=== PATIENT | female | born 1965 | race African-American/Black ===

== ENCOUNTER 2018-06-21 22:19 | Inpatient (IN) | payer MEDICARE, MEDICAID ==
[~2018-06-21] VITALS: Ht 170.2 cm; Wt 177.0 kg
[~2018-06-21 22:19] MED LIST: RIMRON; WELLBUTRIN; ZOLOFT
[2018-06-21] MEDS ORDERED: SODIUM CHLORIDE 0.9% 1,000 ML IV ONE (22:30)
[2018-06-21] MEDS ORDERED: ASPIRIN 81MG TABLET PO ONE (22:30)
[2018-06-21] MEDS: METOPROLOL TARTRATE 5MG/5ML VIAL IV SCH ×2 (22:40→22:53)
[2018-06-21 23:55] LABS: CHLORIDE 106 mEq/L (98-107)
[2018-06-21 23:57] LABS: INR 1.5; PARTIAL THROMBOPLASTIN TIME 25.2 sec (23.4-31.0); PROTHROMBIN TIME 14.8 sec (9.1-11.1)
[2018-06-22] VITALS (10 sets, daily range): BP systolic 106–138; BP diastolic 47–105
[2018-06-22] MEDS ORDERED: POTASSIUM CHLORIDE 20MEQ TABLET SR PO NR
[2018-06-22] MEDS ORDERED: METOPROLOL TARTRATE 25MG TABLET PO ONE
[2018-06-22 00:10] LABS: BASOPHILS % 0.5 % (0.0-2.0); EOSINOPHILS % 0.3 % (0.0-5.0); HEMOGLOBIN. 11.5 g/dL (12.0-16.0); LYMPHOCYTES % 18.1 % (20.0-50.0); MEAN CORPUSCULAR HEMOGLOBIN 26.4 pg (28.0-32.0); MEAN CORPUSCULAR VOLUME 84.7 fL (81.0-99.0); MEAN PLATELET VOLUME 10.9 fl (7.4-10.4); MONOCYTES % 10.5 % (2.0-8.0); NEUTROPHILS % 70.6 % (40.0-76.0); PLATELET 231 x1000/uL (130-400); RED BLOOD CELL COUNT 4.37 mill/uL (4.2-5.4); RED CELL DISTRIBUTION WIDTH 19.7 % (11.6-14.6)
[2018-06-22] MEDS ORDERED: SODIUM CHLORIDE 0.9% 1,000 ML IV ONE (00:30)
[2018-06-22] MEDS ORDERED: ONDANSETRON HCL 4MG/2ML INJ IV ONE (01:45)
[2018-06-22] MEDS: SODIUM CHLORIDE 0.9% 1,000 ML IV SCH ×2 (06:00→18:39)
[2018-06-22 06:58] LABS: BASOPHILS % 0.4 % (0.0-2.0); HEMATOCRIT. 33.9 % (36.0-48.0); HEMOGLOBIN. 10.8 g/dL (12.0-16.0); LYMPHOCYTES % 8.4 % (20.0-50.0); MEAN CORPUSCULAR HEMOGLOBIN 26.2 pg (28.0-32.0); MEAN CORPUSCULAR VOLUME 82.3 fL (81.0-99.0); MEAN PLATELET VOLUME 10.5 fl (7.4-10.4); MONOCYTES % 8.7 % (2.0-8.0); NEUTROPHILS % 82.5 % (40.0-76.0); PLATELET 211 x1000/uL (130-400); RED BLOOD CELL COUNT 4.11 mill/uL (4.2-5.4); RED CELL DISTRIBUTION WIDTH 19.4 % (11.6-14.6)
[2018-06-22 07:11] LABS: CHLORIDE 106 mEq/L (98-107)
[2018-06-22 07:16] LABS: LDL CHOLESTEROL 92 mg/dL (5-100)
[2018-06-22 07:17] LABS: HDL CHOLESTEROL 15 mg/dL (40-59)
[2018-06-22 07:18] LABS: CREATINE KINASE 162 IU/L (26-192)
[2018-06-22 07:20] LABS: CREATINE KINASE MB FRACTION 5.9 ng/mL (0.5-3.6)
[2018-06-22 07:46] LABS: HEPATITIS B SURFACE ANTIGEN NEGATIVE
[2018-06-22 08:15] LABS: HEPATITIS A AB IGM NEGATIVE (NEGATIVE)
[2018-06-22] MEDS ORDERED: ONDANSETRON HCL 4MG/2ML INJ IV PRN (10:15)
[2018-06-22] MEDS ORDERED: HYDROCODONE/ACETAMINOPHEN 5/325MG TABLET PO PRN (10:15)
[2018-06-22] MEDS ORDERED: ACETAMINOPHEN 325MG TABLET PO PRN (10:15)
[2018-06-22] MEDS ORDERED: CLONIDINE 0.1MG TABLET PO PRN (10:15)
[2018-06-22] MEDS: PANTOPRAZOLE SODIUM 40 MG/VIAL IV SCH (11:05)
[2018-06-22] MEDS: DILTIAZEM HCL 5MG/ML 5ML VIAL IV PRN ×5 (11:07→21:28)
[2018-06-22] MEDS ORDERED: LEVOFLOXACIN 750MG PREMIX 150 ML IV SCH (12:00)
[2018-06-22] MEDS: FUROSEMIDE 40MG/4ML VIAL IVP SCH ×2 (13:35→17:46)
[2018-06-22] MEDS: POTASSIUM CHLORIDE 20MEQ TABLET SR PO SCH (13:35)
[2018-06-22] MEDS: DILTIAZEM HCL 30MG TABLET PO SCH ×2 (14:42→21:37)
[2018-06-22] MEDS ORDERED: DEXTROSE 50% WATER 50ML SYRINGE IV PRN (15:45)
[2018-06-22] MEDS: BLOOD SUGAR DIAGNOSTIC STRIP TEST SCH ×2 (17:18→21:25)
[2018-06-22] MEDS: INSULIN LISPRO 100 UNITS/ML SUBCUT SCH ×2 (17:20→21:00)
[2018-06-22] MEDS ORDERED: WARFARIN SODIUM 5MG TABLET PO NR (18:00)
[2018-06-22 18:51] LABS: T4 FREE 1.8 ng/dL (0.76-1.46)
[2018-06-22 19:03] LABS: FOLIC ACID (FOLATE) SERUM 8.5 ng/mL (>5.38)
[2018-06-22] MEDS: AMIODARONE HCL 200 MG TABLET PO SCH (21:24)
[2018-06-22] MEDS: CARVEDILOL 6.25 MG TABLET PO SCH (21:25)
[2018-06-23] VITALS (12 sets, daily range): BP systolic 96–130; BP diastolic 36–98
[2018-06-23] MEDS: IPRATROPIUM BROMIDE (0.02%) 0.5MG/2.5ML NEB HHN SCH ×4 (02:18→20:26)
[2018-06-23] MEDS: SODIUM CHLORIDE 0.9% 1,000 ML IV SCH (05:45)
[2018-06-23] MEDS: DILTIAZEM HCL 30MG TABLET PO SCH ×3 (05:51→21:30)
[2018-06-23] MEDS: BLOOD SUGAR DIAGNOSTIC STRIP TEST SCH ×4 (06:09→21:06)
[2018-06-23] MEDS: INSULIN LISPRO 100 UNITS/ML SUBCUT SCH ×4 (06:09→21:00)
[2018-06-23 07:28] LABS: BASOPHILS % 0.4 % (0.0-2.0); EOSINOPHILS % 0.2 % (0.0-5.0); HEMATOCRIT. 31.5 % (36.0-48.0); HEMOGLOBIN. 10.2 g/dL (12.0-16.0); LYMPHOCYTES % 11.9 % (20.0-50.0); MEAN CORPUSCULAR HEMOGLOBIN 26.6 pg (28.0-32.0); MEAN CORPUSCULAR VOLUME 82.2 fL (81.0-99.0); MEAN PLATELET VOLUME 10.8 fl (7.4-10.4); MONOCYTES % 10.7 % (2.0-8.0); NEUTROPHILS % 76.8 % (40.0-76.0); PLATELET 162 x1000/uL (130-400); RED BLOOD CELL COUNT 3.83 mill/uL (4.2-5.4); RED CELL DISTRIBUTION WIDTH 19.5 % (11.6-14.6)
[2018-06-23 07:31] LABS: INR 1.4; PROTHROMBIN TIME 14.3 sec (9.1-11.1)
[2018-06-23 07:42] LABS: CHLORIDE 105 mEq/L (98-107)
[2018-06-23] MEDS: BUDESONIDE 0.5MG/2ML NEB HHN SCH ×2 (08:18→20:26)
[2018-06-23] MEDS: PANTOPRAZOLE SODIUM 40 MG/VIAL IV SCH (08:25)
[2018-06-23] MEDS: POTASSIUM CHLORIDE 20MEQ TABLET SR PO SCH (08:26)
[2018-06-23] MEDS: AMIODARONE HCL 200 MG TABLET PO SCH ×2 (08:26→20:55)
[2018-06-23] MEDS: FUROSEMIDE 40MG/4ML VIAL IVP SCH ×2 (08:26→17:00)
[2018-06-23] MEDS: CARVEDILOL 6.25 MG TABLET PO SCH ×2 (08:27→20:56)
[2018-06-23] MEDS ORDERED: ALPRAZOLAM 0.25 MG TABLET PO SCH (12:15)
[2018-06-23] MEDS ORDERED: VANCOMYCIN 2,000 MG in DEXT 5% WATER 500 ML IV SCH (12:30)
[2018-06-23] MEDS ORDERED: WARFARIN SODIUM 5MG TABLET PO SCH (18:00)
[2018-06-23] MEDS: VANCOMYCIN 1,750 MG in DEXT 5% WATER 500 ML IV SCH (20:55)
[2018-06-24] VITALS (11 sets, daily range): BP systolic 100–135; BP diastolic 56–98
[2018-06-24] MEDS: IPRATROPIUM BROMIDE (0.02%) 0.5MG/2.5ML NEB HHN SCH ×4 (00:29→20:42)
[2018-06-24] MEDS: DILTIAZEM HCL 30MG TABLET PO SCH ×2 (06:00→14:00)
[2018-06-24] MEDS: INSULIN LISPRO 100 UNITS/ML SUBCUT SCH (06:22)
[2018-06-24] MEDS: BLOOD SUGAR DIAGNOSTIC STRIP TEST SCH ×2 (06:22→11:03)
[2018-06-24 07:04] LABS: INR 1.5; PROTHROMBIN TIME 14.6 sec (9.1-11.1)
[2018-06-24 07:11] LABS: BASOPHILS % 0.5 % (0.0-2.0); EOSINOPHILS % 0.3 % (0.0-5.0); HEMOGLOBIN. 10.7 g/dL (12.0-16.0); LYMPHOCYTES % 11.8 % (20.0-50.0); MEAN CORPUSCULAR HEMOGLOBIN 26.1 pg (28.0-32.0); MEAN CORPUSCULAR VOLUME 82.7 fL (81.0-99.0); MEAN PLATELET VOLUME 10.7 fl (7.4-10.4); MONOCYTES % 12.2 % (2.0-8.0); NEUTROPHILS % 75.2 % (40.0-76.0); PLATELET 160 x1000/uL (130-400); RED BLOOD CELL COUNT 4.11 mill/uL (4.2-5.4); RED CELL DISTRIBUTION WIDTH 19.5 % (11.6-14.6)
[2018-06-24 07:13] LABS: CHLORIDE 104 mEq/L (98-107)
[2018-06-24] MEDS: PANTOPRAZOLE SODIUM 40 MG/VIAL IV SCH (08:16)
[2018-06-24] MEDS: POTASSIUM CHLORIDE 20MEQ TABLET SR PO SCH (08:17)
[2018-06-24] MEDS: CARVEDILOL 6.25 MG TABLET PO SCH ×2 (08:17→20:51)
[2018-06-24] MEDS: AMIODARONE HCL 200 MG TABLET PO SCH (08:18)
[2018-06-24] MEDS: FUROSEMIDE 40MG/4ML VIAL IVP SCH ×2 (08:23→17:56)
[2018-06-24] MEDS: VANCOMYCIN 1,750 MG in DEXT 5% WATER 500 ML IV SCH ×2 (08:23→20:52)
[2018-06-24] MEDS: BUDESONIDE 0.5MG/2ML NEB HHN SCH ×2 (12:08→20:43)
[2018-06-24] MEDS ORDERED: WARFARIN SODIUM 7.5MG TABLET PO SCH (18:00)
[2018-06-24] MEDS: DILTIAZEM HCL 120MG CAPSULE CD 24HR PO SCH (20:51)
[2018-06-24 21:44] LABS: CLARITY URINE CLEAR (CLEAR); COLOR URINE YELLOW (YELLOW); KETONES URINE NEGATIVE (NEGATIVE); LEUKOCYTE ESTERASE URINE 1+ (NEGATIVE); NITRITE URINE NEGATIVE (NEGATIVE); OCCULT BLOOD URINE 2+ (NEGATIVE); PROTEIN URINE NEGATIVE (NEGATIVE); SPECIFIC GRAVITY URINE 1.007 (1.005-1.030)
[2018-06-24 21:58] LABS: *AMPHETAMINES SCREEN URINE NEGATIVE (NEGATIVE); *BARBITURATES SCREEN URINE NEGATIVE (NEGATIVE); *BENZODIAZEPINES SCREEN URINE NEGATIVE (NEGATIVE); *COCAINE SCREEN URINE NEGATIVE (NEGATIVE); METHADONE URINE SCREEN NEGATIVE (NEGATIVE); OPIATES URINE SCREEN PRESUMTIVE POSITIVE (NEGATIVE); PHENCYCLIDINE URINE SCREEN NEGATIVE (NEGATIVE)
[2018-06-24 21:59] LABS: CANNABINOID URINE SCREEN NEGATIVE (NEGATIVE)
[2018-06-25] VITALS (13 sets, daily range): BP systolic 97–135; BP diastolic 53–81
[2018-06-25] MEDS: IPRATROPIUM BROMIDE (0.02%) 0.5MG/2.5ML NEB HHN SCH ×4 (02:00→20:50)
[2018-06-25 05:45] LABS: HEMATOCRIT. 31.2 % (36.0-48.0); HEMOGLOBIN. 10.2 g/dL (12.0-16.0); MEAN CORPUSCULAR HEMOGLOBIN 26.7 pg (28.0-32.0); MEAN CORPUSCULAR VOLUME 81.6 fL (81.0-99.0); MEAN PLATELET VOLUME 10.1 fl (7.4-10.4); PLATELET 157 x1000/uL (130-400); RED BLOOD CELL COUNT 3.82 mill/uL (4.2-5.4); RED CELL DISTRIBUTION WIDTH 18.9 % (11.6-14.6)
[2018-06-25 05:50] LABS: INR 1.4; PROTHROMBIN TIME 13.8 sec (9.1-11.1)
[2018-06-25 05:56] LABS: CHLORIDE 102 mEq/L (98-107)
[2018-06-25] MEDS: BUDESONIDE 0.5MG/2ML NEB HHN SCH (08:50)
[2018-06-25] MEDS: POTASSIUM CHLORIDE 20MEQ TABLET SR PO SCH ×2 (08:52→17:25)
[2018-06-25] MEDS: PANTOPRAZOLE SODIUM 40 MG/VIAL IV SCH (08:52)
[2018-06-25] MEDS: FUROSEMIDE 40MG/4ML VIAL IVP SCH ×2 (08:52→17:24)
[2018-06-25] MEDS: CARVEDILOL 6.25 MG TABLET PO SCH ×2 (08:53→20:36)
[2018-06-25] MEDS: VANCOMYCIN 1,750 MG in DEXT 5% WATER 500 ML IV SCH (08:53)
[2018-06-25] MEDS: DILTIAZEM HCL 120MG CAPSULE CD 24HR PO SCH ×2 (08:53→17:26)
[2018-06-25] MEDS ORDERED: WARFARIN SODIUM 10MG TABLET PO SCH (18:00)
[2018-06-26] VITALS (12 sets, daily range): BP systolic 96–136; BP diastolic 51–79
[2018-06-26] MEDS: IPRATROPIUM BROMIDE (0.02%) 0.5MG/2.5ML NEB HHN SCH ×4 (00:51→20:28)
[2018-06-26] MEDS ORDERED: VANCOMYCIN 2,000 MG in DEXT 5% WATER 500 ML IV SCH (06:00)
[2018-06-26] MEDS ORDERED: VANCOMYCIN 1,750 MG in DEXT 5% WATER 500 ML IV SCH (06:00)
[2018-06-26 06:05] LABS: BASOPHILS % 0.4 % (0.0-2.0); EOSINOPHILS % 0.4 % (0.0-5.0); HEMATOCRIT. 32.1 % (36.0-48.0); HEMOGLOBIN. 10.3 g/dL (12.0-16.0); INR 1.7; LYMPHOCYTES % 9.1 % (20.0-50.0); MEAN CORPUSCULAR HEMOGLOBIN 26.2 pg (28.0-32.0); MEAN CORPUSCULAR VOLUME 81.6 fL (81.0-99.0); MEAN PLATELET VOLUME 10.2 fl (7.4-10.4); MONOCYTES % 14.9 % (2.0-8.0); NEUTROPHILS % 75.2 % (40.0-76.0); PLATELET 162 x1000/uL (130-400); PROTHROMBIN TIME 17.1 sec (9.1-11.1); RED BLOOD CELL COUNT 3.93 mill/uL (4.2-5.4); RED CELL DISTRIBUTION WIDTH 19.2 % (11.6-14.6)
[2018-06-26] MEDS: CARVEDILOL 6.25 MG TABLET PO SCH ×2 (09:00→20:37)
[2018-06-26] MEDS: DILTIAZEM HCL 120MG CAPSULE CD 24HR PO SCH ×2 (09:00→17:27)
[2018-06-26] MEDS: FUROSEMIDE 40MG/4ML VIAL IVP SCH ×2 (09:28→17:28)
[2018-06-26] MEDS: PANTOPRAZOLE SODIUM 40 MG/VIAL IV SCH (09:28)
[2018-06-26] MEDS: POTASSIUM CHLORIDE 20MEQ TABLET SR PO SCH ×2 (09:28→17:26)
[2018-06-26] MEDS ORDERED: LEVOFLOXACIN 250MG TABLET PO SCH (14:00)
[2018-06-26 14:07] LABS: NUCLEATED RED BLOOD CELLS 1 /100 WBC; PLATELET ESTIMATE NORMAL
[2018-06-26] MEDS ORDERED: LIDOCAINE HCL/PF 1% 2ML VIAL ONE (15:51)
[2018-06-26 16:40] LABS: BG BASE EXCESS 0.6 mmol/L (-2.0-2.0); BG CARBOXYHEMOGLOBIN 0.5 % (0.5-1.5); BG DEOXYHEMOGLOBIN 8.9 % (0.0-5.0); BG FRACTION INSPIRED OXYGEN 21; BG METHEMOGLOBIN 0.3 % (0.0-1.5); BG OXYHEMOGLOBIN 90.3 % (94.0-97.0); BG PCO2 39.2 mmHg (35.0-45.0); BG PH 7.423 (7.350-7.450); BG PO2 62.6 mmHg (75.0-100.0); BG SAMPLE SITE RIGHT BRACHIAL; BG TOTAL HEMOGLOBIN 10.9 g/dL (12.0-18.0); BG VENT MODE ROOM AIR
[2018-06-26] MEDS ORDERED: WARFARIN SODIUM 10MG TABLET PO NR (18:00)
[2018-06-27] VITALS (11 sets, daily range): BP systolic 66–180; BP diastolic 25–82
[2018-06-27] MEDS: IPRATROPIUM BROMIDE (0.02%) 0.5MG/2.5ML NEB HHN SCH ×3 (01:44→20:37)
[2018-06-27] MEDS: FUROSEMIDE 40MG/4ML VIAL IVP SCH (06:43)
[2018-06-27 06:58] LABS: HEMATOCRIT. 32.5 % (36.0-48.0); HEMOGLOBIN. 10.3 g/dL (12.0-16.0); MEAN CORPUSCULAR HEMOGLOBIN 25.9 pg (28.0-32.0); MEAN CORPUSCULAR VOLUME 81.8 fL (81.0-99.0); MEAN PLATELET VOLUME 9.8 fl (7.4-10.4); PLATELET 168 x1000/uL (130-400); RED BLOOD CELL COUNT 3.98 mill/uL (4.2-5.4); RED CELL DISTRIBUTION WIDTH 19.5 % (11.6-14.6)
[2018-06-27 07:05] LABS: INR 3.1; PROTHROMBIN TIME 30.5 sec (9.1-11.1)
[2018-06-27] MEDS: IPRATROPIUM/ALBUTEROL 0.5-3(2.5)MG/3ML NEB INH PRN (08:49)
[2018-06-27] MEDS ORDERED: FUROSEMIDE 40MG/4ML VIAL IVP SCH (09:00)
[2018-06-27] MEDS ORDERED: POTASSIUM CHLORIDE 20MEQ TABLET SR PO SCH (09:00)
[2018-06-27] MEDS: FAMOTIDINE 20MG TABLET PO SCH (09:07)
[2018-06-27] MEDS: POTASSIUM CHLORIDE 20MEQ TABLET SR PO SCH (09:07)
[2018-06-27] MEDS: DILTIAZEM HCL 120MG CAPSULE CD 24HR PO SCH ×2 (09:07→18:01)
[2018-06-27] MEDS: CARVEDILOL 6.25 MG TABLET PO SCH ×2 (09:08→20:58)
[2018-06-27] MEDS ORDERED: LEVOFLOXACIN 250MG PREMIX 50 ML IV SCH (12:00)
[2018-06-27 13:14] LABS: PLATELET ESTIMATE NORMAL
[2018-06-27] MEDS: MEROPENEM 1000MG in NORMAL SALINE 100ML IV SCH ×2 (18:00→20:58)
[2018-06-28] VITALS (10 sets, daily range): BP systolic 99–137; BP diastolic 64–90
[2018-06-28] MEDS: IPRATROPIUM BROMIDE (0.02%) 0.5MG/2.5ML NEB HHN SCH ×4 (00:49→13:36)
[2018-06-28] MEDS: MEROPENEM 1000MG in NORMAL SALINE 100ML IV SCH ×3 (05:24→20:41)
[2018-06-28 06:43] LABS: HEMATOCRIT. 30.3 % (36.0-48.0); HEMOGLOBIN. 9.9 g/dL (12.0-16.0); MEAN CORPUSCULAR HEMOGLOBIN 26.2 pg (28.0-32.0); MEAN CORPUSCULAR VOLUME 80.4 fL (81.0-99.0); MEAN PLATELET VOLUME 9.5 fl (7.4-10.4); PLATELET 178 x1000/uL (130-400); RED BLOOD CELL COUNT 3.77 mill/uL (4.2-5.4); RED CELL DISTRIBUTION WIDTH 18.9 % (11.6-14.6)
[2018-06-28 06:48] LABS: PROTHROMBIN TIME 38.9 sec (9.1-11.1)
[2018-06-28 06:59] LABS: CHLORIDE 103 mEq/L (98-107)
[2018-06-28 07:05] LABS: PHOSPHORUS 3.1 mg/dL (2.5-4.9)
[2018-06-28] MEDS: CARVEDILOL 6.25 MG TABLET PO SCH (09:00)
[2018-06-28] MEDS: FAMOTIDINE 20MG TABLET PO SCH (09:10)
[2018-06-28] MEDS: POTASSIUM CHLORIDE 20MEQ TABLET SR PO SCH (09:25)
[2018-06-28] MEDS: FUROSEMIDE 40MG/4ML VIAL IVP SCH (10:37)
[2018-06-28 12:21] LABS: PLATELET ESTIMATE NORMAL
[2018-06-28] MEDS ORDERED: SODIUM CHLORIDE 45ML SPRAY NS PRN (17:30)
[2018-06-28] MEDS: DOCUSATE SODIUM 100MG CAPSULE PO PRN (19:04)
[2018-06-28] MEDS: CARVEDILOL 3.125 MG TABLET PO SCH (20:41)
[2018-06-29] VITALS (8 sets, daily range): BP systolic 95–123; BP diastolic 44–96
[2018-06-29] MEDS: IPRATROPIUM BROMIDE (0.02%) 0.5MG/2.5ML NEB HHN SCH ×4 (01:20→20:42)
[2018-06-29] MEDS ORDERED: MEROPENEM 500 MG in SODIUM CHLORIDE 0.9% 50 ML IV SCH (05:00)
[2018-06-29 06:43] LABS: BASOPHILS % 0.4 % (0.0-2.0); EOSINOPHILS % 1.1 % (0.0-5.0); HEMATOCRIT. 32.4 % (36.0-48.0); HEMOGLOBIN. 10.6 g/dL (12.0-16.0); LYMPHOCYTES % 9.8 % (20.0-50.0); MEAN CORPUSCULAR HEMOGLOBIN 26.3 pg (28.0-32.0); MEAN CORPUSCULAR VOLUME 80.2 fL (81.0-99.0); MEAN PLATELET VOLUME 9.2 fl (7.4-10.4); NEUTROPHILS % 75.7 % (40.0-76.0); PLATELET 202 x1000/uL (130-400); RED BLOOD CELL COUNT 4.04 mill/uL (4.2-5.4); RED CELL DISTRIBUTION WIDTH 19.1 % (11.6-14.6)
[2018-06-29 07:13] LABS: PHOSPHORUS 3.4 mg/dL (2.5-4.9)
[2018-06-29] MEDS: FAMOTIDINE 20MG TABLET PO SCH (08:15)
[2018-06-29] MEDS: CARVEDILOL 3.125 MG TABLET PO SCH ×2 (08:15→21:00)
[2018-06-29] MEDS: POTASSIUM CHLORIDE 20MEQ TABLET SR PO SCH (08:15)
[2018-06-29] MEDS: FUROSEMIDE 40MG/4ML VIAL IVP SCH (08:54)
[2018-06-29] MEDS: FUROSEMIDE 40MG TABLET PO SCH (10:29)
[2018-06-29] MEDS: FERROUS SULFATE 325MG TABLET PO SCH (19:10)
[2018-06-29] MEDS: SULFAMETHOXAZOLE/TRIMETHOPRIM 400/80MG TAB PO SCH (21:43)
[2018-06-30] VITALS: BP 103/53
[2018-06-30 00:22] LABS: INR 2.6; PROTHROMBIN TIME 25.3 sec (9.1-11.1)
[2018-06-30] MEDS: IPRATROPIUM BROMIDE (0.02%) 0.5MG/2.5ML NEB HHN SCH ×4 (01:23→21:15)
[2018-06-30 04:00] VITALS: BP 122/68
[2018-06-30 08:00] VITALS: BP 110/79
[2018-06-30 08:58] LABS: PHOSPHORUS 3.2 mg/dL (2.5-4.9)
[2018-06-30] MEDS: DOCUSATE SODIUM 100MG CAPSULE PO PRN (09:11)
[2018-06-30] MEDS: POTASSIUM CHLORIDE 20MEQ TABLET SR PO SCH (09:12)
[2018-06-30] MEDS: FERROUS SULFATE 325MG TABLET PO SCH ×2 (09:12→18:32)
[2018-06-30] MEDS: FUROSEMIDE 40MG TABLET PO SCH (09:13)
[2018-06-30] MEDS: FAMOTIDINE 20MG TABLET PO SCH (09:13)
[2018-06-30] MEDS: CARVEDILOL 3.125 MG TABLET PO SCH ×2 (09:13→21:00)
[2018-06-30] MEDS: SULFAMETHOXAZOLE/TRIMETHOPRIM 400/80MG TAB PO SCH ×2 (09:13→21:51)
[2018-06-30 10:47] LABS: INR 2.2; PROTHROMBIN TIME 21.6 sec (9.1-11.1)
[2018-06-30] MEDS: TRAMADOL 50MG TABLET PO PRN ×2 (11:32→21:52)
[2018-06-30 12:00] VITALS: BP 105/61
[2018-06-30 16:00] VITALS: BP 113/69
[2018-06-30] MEDS ORDERED: WARFARIN SODIUM 2MG TABLET PO SCH (18:00)
[2018-06-30 20:00] VITALS: BP 96/94
[2018-07-01] VITALS: BP 118/68
[2018-07-01 01:16] LABS: HEMATOCRIT 35.1 % (36.0-48.0); HEMOGLOBIN 11.2 g/dL (12.0-16.0); MEAN CORPUSCULAR HEMOGLOBIN 25.7 pg (28.0-32.0); MEAN CORPUSCULAR VOLUME 80.3 fL (81.0-99.0); PLATELET 224 x1000/uL (130-400); RED BLOOD CELL COUNT 4.37 mill/uL (4.2-5.4); RED CELL DISTRIBUTION WIDTH 19.5 % (11.6-14.6)
[2018-07-01] MEDS: IPRATROPIUM BROMIDE (0.02%) 0.5MG/2.5ML NEB HHN SCH ×3 (02:01→20:41)
[2018-07-01 04:00] VITALS: BP 116/72
[2018-07-01 08:00] VITALS: BP 109/82
[2018-07-01] MEDS: CARVEDILOL 3.125 MG TABLET PO SCH ×2 (09:00→21:41)
[2018-07-01] MEDS: SULFAMETHOXAZOLE/TRIMETHOPRIM 400/80MG TAB PO SCH ×2 (09:24→21:41)
[2018-07-01] MEDS: FAMOTIDINE 20MG TABLET PO SCH (09:24)
[2018-07-01] MEDS: FERROUS SULFATE 325MG TABLET PO SCH ×3 (09:24→17:30)
[2018-07-01] MEDS: POTASSIUM CHLORIDE 20MEQ TABLET SR PO SCH (09:24)
[2018-07-01] MEDS: FUROSEMIDE 40MG TABLET PO SCH (09:24)
[2018-07-01 12:00] VITALS: BP 107/60
[2018-07-01 13:18] LABS: HEMATOCRIT. 32.3 % (36.0-48.0); HEMOGLOBIN. 10.3 g/dL (12.0-16.0); MEAN CORPUSCULAR HEMOGLOBIN 25.7 pg (28.0-32.0); MEAN CORPUSCULAR VOLUME 80.7 fL (81.0-99.0); MEAN PLATELET VOLUME 9.1 fl (7.4-10.4); PLATELET 250 x1000/uL (130-400); RED CELL DISTRIBUTION WIDTH 19.5 % (11.6-14.6)
[2018-07-01 13:35] LABS: PROTHROMBIN TIME 19.6 sec (9.1-11.1)
[2018-07-01 15:23] LABS: PLATELET ESTIMATE NORMAL
[2018-07-01 16:00] VITALS: BP 112/74
[2018-07-01] MEDS: IPRATROPIUM/ALBUTEROL 0.5-3(2.5)MG/3ML NEB INH PRN (16:20)
[2018-07-01] MEDS ORDERED: WARFARIN SODIUM 5MG TABLET PO SCH (18:00)
[2018-07-01] MEDS: TRAMADOL 50MG TABLET PO PRN (19:22)
[2018-07-01 20:00] VITALS: BP 124/82
[2018-07-02] VITALS: BP 103/53
[2018-07-02] MEDS: IPRATROPIUM BROMIDE (0.02%) 0.5MG/2.5ML NEB HHN SCH ×3 (03:02→21:30)
[2018-07-02 04:00] VITALS: BP 108/68
[2018-07-02 07:25] LABS: INR 2.1; PROTHROMBIN TIME 20.9 sec (9.1-11.1)
[2018-07-02 07:30] LABS: HEMATOCRIT. 31.3 % (36.0-48.0); MEAN CORPUSCULAR HEMOGLOBIN 25.4 pg (28.0-32.0); MEAN CORPUSCULAR VOLUME 79.9 fL (81.0-99.0); MEAN PLATELET VOLUME 8.8 fl (7.4-10.4); PLATELET 242 x1000/uL (130-400); RED BLOOD CELL COUNT 3.92 mill/uL (4.2-5.4); RED CELL DISTRIBUTION WIDTH 19.2 % (11.6-14.6)
[2018-07-02 08:18] LABS: PHOSPHORUS 3.2 mg/dL (2.5-4.9)
[2018-07-02] MEDS: FUROSEMIDE 40MG TABLET PO SCH ×2 (08:45→17:49)
[2018-07-02] MEDS: FERROUS SULFATE 325MG TABLET PO SCH ×3 (08:45→17:49)
[2018-07-02] MEDS: POTASSIUM CHLORIDE 20MEQ TABLET SR PO SCH (08:45)
[2018-07-02] MEDS: CARVEDILOL 3.125 MG TABLET PO SCH ×2 (08:46→20:46)
[2018-07-02] MEDS ORDERED: SORBITOL 70% SOLN 30ML PO SCH (09:40)
[2018-07-02 12:00] VITALS: BP 98/69
[2018-07-02 12:54] LABS: PLATELET ESTIMATE NORMAL
[2018-07-02] MEDS: FAMOTIDINE 20MG TABLET PO SCH (13:13)
[2018-07-02 16:00] VITALS: BP 106/68
[2018-07-02] MEDS ORDERED: WARFARIN SODIUM 5MG TABLET PO SCH (18:00)
[2018-07-02 20:00] VITALS: BP 94/52
[2018-07-03] VITALS: BP 99/56
[2018-07-03] MEDS: IPRATROPIUM BROMIDE (0.02%) 0.5MG/2.5ML NEB HHN SCH ×3 (02:32→15:16)
[2018-07-03 06:05] LABS: HEMATOCRIT. 30.3 % (36.0-48.0); MEAN CORPUSCULAR VOLUME 79.3 fL (81.0-99.0); PLATELET 262 x1000/uL (130-400); RED BLOOD CELL COUNT 3.83 mill/uL (4.2-5.4); RED CELL DISTRIBUTION WIDTH 19.2 % (11.6-14.6)
[2018-07-03 06:08] LABS: INR 2.3; PROTHROMBIN TIME 22.9 sec (9.1-11.1)
[2018-07-03 06:18] VITALS: BP 119/56
[2018-07-03 08:00] VITALS: BP 113/71
[2018-07-03] MEDS: FAMOTIDINE 20MG TABLET PO SCH (09:11)
[2018-07-03] MEDS: FERROUS SULFATE 325MG TABLET PO SCH ×2 (09:11→13:45)
[2018-07-03] MEDS: CARVEDILOL 3.125 MG TABLET PO SCH (09:12)
[2018-07-03] MEDS: DOCUSATE SODIUM 100MG CAPSULE PO PRN (09:12)
[2018-07-03] MEDS: FUROSEMIDE 40MG TABLET PO SCH (09:12)
[2018-07-03] MEDS: POTASSIUM CHLORIDE 20MEQ TABLET SR PO SCH (09:13)
[2018-07-03 10:11] LABS: PLATELET ESTIMATE NORMAL
[2018-07-03] MEDS: TRAMADOL 50MG TABLET PO PRN (11:01)
[2018-07-03 12:00] VITALS: BP 120/78
[2018-07-03 12:53] VITALS: BP 120/78
[2018-07-03 16:00] VITALS: BP 103/42
[2018-07-03] MEDS ORDERED: WARFARIN SODIUM 5MG TABLET PO SCH (18:00)
[2018-07-03] MEDS ORDERED: AMIODARONE HCL 200 MG TABLET PO SCH (18:10)
[2018-07-03] MEDS ORDERED: CARVEDILOL 6.25 MG TABLET PO SCH (21:00)
== END 2018-07-03 17:33 | DRG 871 ==
LOC: ER 22:19 → EDBEDREQ 23:08 → EDBEDREQTM 23:08 → EDBEDREQSVC 06-22 01:04 → ENRESERV 06-22 01:30 → 3WST 06-22 02:55 → 7WST 06-29 09:07
PROVIDERS: ADMIT Internal Medicine; ATTEND Internal Medicine
DX: A41.89 Other specified sepsis (principal); I50.43 Acute on chronic combined systolic (congestive) and diastolic (congestive) heart failure; J96.01 Acute respiratory failure with hypoxia; D68.59 Other primary thrombophilia; I42.9 Cardiomyopathy, unspecified; J44.1 Chronic obstructive pulmonary disease with (acute) exacerbation; D68.9 Coagulation defect, unspecified; E44.1 Mild protein-calorie malnutrition; N17.9 Acute kidney failure, unspecified; E87.2 Acidosis; I48.92 Unspecified atrial flutter; N39.0 Urinary tract infection, site not specified; Z68.44 Body mass index [BMI] 60.0-69.9, adult; E03.9 Hypothyroidism, unspecified; D50.9 Iron deficiency anemia, unspecified; E66.01 Morbid (severe) obesity due to excess calories; R74.0 Nonspecific elevation of levels of transaminase and lactic acid dehydrogenase [LDH]; E11.9 Type 2 diabetes mellitus without complications; I48.2 Chronic atrial fibrillation; I27.20 Pulmonary hypertension, unspecified; B96.20 Unspecified Escherichia coli [E. coli] as the cause of diseases classified elsewhere; E78.5 Hyperlipidemia, unspecified; E87.6 Hypokalemia; F32.9 Major depressive disorder, single episode, unspecified; I11.0 Hypertensive heart disease with heart failure; K76.0 Fatty (change of) liver, not elsewhere classified; M19.90 Unspecified osteoarthritis, unspecified site; M71.22 Synovial cyst of popliteal space [Baker], left knee; Z16.12 Extended spectrum beta lactamase (ESBL) resistance; Z79.01 Long term (current) use of anticoagulants; Z79.84 Long term (current) use of oral hypoglycemic drugs; Z82.49 Family history of ischemic heart disease and other diseases of the circulatory system; Z84.1 Family history of disorders of kidney and ureter; Z87.891 Personal history of nicotine dependence; Z91.14 Patient's other noncompliance with medication regimen; Z91.19 Patient's noncompliance with other medical treatment and regimen; Z98.891 History of uterine scar from previous surgery; Z99.3 Dependence on wheelchair; Z79.899 Other long term (current) drug therapy; Z79.82 Long term (current) use of aspirin
CPT/HCPCS: 36415; 36600; 71045; 76700; 76856; 78580; 80048; 80061; 80076; 80202; 80305; 82375; 82550; 82553; 82607; 82728; 82746; 82805; 82962; 83036; 83540; 83550; 83605; 83735; 83880; 84100; 84145; 84439; 84443; 84481; 84484; 85027; 85379; 86705; 86709; 86803; 87077; 87186; 87340; 93005; 93306; 93971; 94640; 96360; 96361; 97163; 97530; 99291; A6261; C1893; C9113; J1940; J1956; J2185; J2405; J3370; J3490; J7030; J7040; J7060; J7620; J7626

== ENCOUNTER 2018-07-03 17:30 | Inpatient (IN) | payer MEDICARE, MEDICAID ==
[~2018-07-03] VITALS: Ht 170.2 cm; Wt 176.6 kg
[2018-07-03 16:30] VITALS: BP 120/86
[2018-07-03] MEDS ORDERED: CLONIDINE 0.1MG TABLET PO PRN (19:15)
[2018-07-03] MEDS ORDERED: IPRATROPIUM/ALBUTEROL 0.5-3(2.5)MG/3ML NEB HHN PRN (19:15)
[2018-07-03] MEDS ORDERED: ACETAMINOPHEN 325MG TABLET PO PRN (19:15)
[2018-07-03] MEDS ORDERED: ONDANSETRON HCL 4MG TABLET PO PRN (19:15)
[2018-07-03] MEDS ORDERED: TRAMADOL 50MG TABLET PO PRN (19:15)
[2018-07-03] MEDS ORDERED: DOCUSATE SODIUM 100MG CAPSULE PO PRN (19:15)
[2018-07-03] MEDS ORDERED: WARFARIN SODIUM 5MG TABLET PO SCH (19:30)
[2018-07-03 20:00] VITALS: BP 111/61
[2018-07-03] MEDS: CARVEDILOL 3.125 MG TABLET PO SCH (21:00)
[2018-07-03] MEDS ORDERED: SODIUM CHLORIDE 45ML SPRAY NS PRN (21:00)
[2018-07-03] MEDS: FUROSEMIDE 40MG TABLET PO SCH (21:33)
[2018-07-04] MEDS ORDERED: IPRATROPIUM/ALBUTEROL 0.5-3(2.5)MG/3ML NEB HHN SCH
[2018-07-04] MEDS: IPRATROPIUM/ALBUTEROL 0.5-3(2.5)MG/3ML NEB HHN SCH ×4 (01:54→21:21)
[2018-07-04 07:18] LABS: HEMATOCRIT. 31.9 % (36.0-48.0); HEMOGLOBIN. 10.1 g/dL (12.0-16.0); INR 2.2; MEAN CORPUSCULAR HEMOGLOBIN 25.4 pg (28.0-32.0); MEAN CORPUSCULAR VOLUME 80.1 fL (81.0-99.0); MEAN PLATELET VOLUME 8.9 fl (7.4-10.4); PLATELET 257 x1000/uL (130-400); PROTHROMBIN TIME 22.3 sec (9.1-11.1); RED BLOOD CELL COUNT 3.98 mill/uL (4.2-5.4); RED CELL DISTRIBUTION WIDTH 19.5 % (11.6-14.6)
[2018-07-04 07:27] LABS: CHLORIDE 104 mEq/L (98-107)
[2018-07-04 08:24] VITALS: BP 116/62
[2018-07-04] MEDS: FAMOTIDINE 20MG TABLET PO SCH (08:38)
[2018-07-04] MEDS: CARVEDILOL 3.125 MG TABLET PO SCH ×2 (08:42→21:00)
[2018-07-04] MEDS: POTASSIUM CHLORIDE 20MEQ TABLET SR PO SCH (08:43)
[2018-07-04] MEDS: FERROUS SULFATE 325MG TABLET PO SCH ×3 (08:43→17:11)
[2018-07-04] MEDS: FUROSEMIDE 40MG TABLET PO SCH ×2 (08:43→17:11)
[2018-07-04] MEDS: LACTULOSE 20G/30ML UDC PO SCH (10:37)
[2018-07-04 15:52] LABS: PLATELET ESTIMATE NORMAL
[2018-07-04] MEDS ORDERED: WARFARIN SODIUM 5MG TABLET PO SCH (18:00)
[2018-07-04 18:14] LABS: CLARITY URINE CLEAR (CLEAR); COLOR URINE YELLOW (YELLOW); KETONES URINE NEGATIVE (NEGATIVE); LEUKOCYTE ESTERASE URINE 2+ (NEGATIVE); NITRITE URINE NEGATIVE (NEGATIVE); OCCULT BLOOD URINE 1+ (NEGATIVE); PH URINE 6.5 (4.5-8.0); PROTEIN URINE NEGATIVE (NEGATIVE); SPECIFIC GRAVITY URINE 1.009 (1.005-1.030)
[2018-07-04 20:00] VITALS: BP 102/71
[2018-07-04] MEDS: MICONAZOLE NITRATE 2% OINT 71GM TOP SCH (21:00)
[2018-07-05] MEDS: LIDOCAINE HCL 4% CREAM 76GM TUBE TP PRN ×2 (00:08→05:23)
[2018-07-05] MEDS: IPRATROPIUM/ALBUTEROL 0.5-3(2.5)MG/3ML NEB HHN SCH ×4 (00:58→20:52)
[2018-07-05 06:19] LABS: INR 2.5; PROTHROMBIN TIME 24.7 sec (9.1-11.1)
[2018-07-05 06:24] LABS: HEMATOCRIT. 31.2 % (36.0-48.0); HEMOGLOBIN. 10.1 g/dL (12.0-16.0); MEAN CORPUSCULAR HEMOGLOBIN 25.8 pg (28.0-32.0); MEAN CORPUSCULAR VOLUME 79.7 fL (81.0-99.0); PLATELET 252 x1000/uL (130-400); RED BLOOD CELL COUNT 3.91 mill/uL (4.2-5.4); RED CELL DISTRIBUTION WIDTH 19.2 % (11.6-14.6)
[2018-07-05] MEDS: FUROSEMIDE 40MG TABLET PO SCH ×2 (06:38→17:14)
[2018-07-05 06:52] LABS: PHOSPHORUS 3.2 mg/dL (2.5-4.9)
[2018-07-05 08:00] VITALS: BP 115/79
[2018-07-05] MEDS: CARVEDILOL 3.125 MG TABLET PO SCH (08:37)
[2018-07-05] MEDS: POTASSIUM CHLORIDE 20MEQ TABLET SR PO SCH (08:37)
[2018-07-05] MEDS: FAMOTIDINE 20MG TABLET PO SCH (08:37)
[2018-07-05] MEDS: MICONAZOLE NITRATE 2% OINT 71GM TOP SCH ×2 (08:37→21:00)
[2018-07-05] MEDS: FERROUS SULFATE 325MG TABLET PO SCH ×3 (08:37→17:14)
[2018-07-05] MEDS: LACTULOSE 20G/30ML UDC PO SCH (08:38)
[2018-07-05 13:37] LABS: PLATELET ESTIMATE NORMAL
[2018-07-05] MEDS ORDERED: WARFARIN SODIUM 2.5MG TABLET PO SCH (18:00)
[2018-07-05 20:00] VITALS: BP 114/81
[2018-07-05] MEDS ORDERED: CARVEDILOL 6.25 MG TABLET PO SCH (21:00)
[2018-07-06 00:04] LABS: CLARITY URINE CLEAR (CLEAR); COLOR URINE YELLOW (YELLOW); KETONES URINE NEGATIVE (NEGATIVE); LEUKOCYTE ESTERASE URINE TRACE (NEGATIVE); NITRITE URINE NEGATIVE (NEGATIVE); OCCULT BLOOD URINE NEGATIVE (NEGATIVE); PROTEIN URINE NEGATIVE (NEGATIVE); SPECIFIC GRAVITY URINE 1.013 (1.005-1.030)
[2018-07-06] MEDS: IPRATROPIUM/ALBUTEROL 0.5-3(2.5)MG/3ML NEB HHN SCH ×4 (03:09→21:36)
[2018-07-06] MEDS: FUROSEMIDE 40MG TABLET PO SCH ×2 (06:53→18:50)
[2018-07-06 08:00] VITALS: BP 93/60
[2018-07-06] MEDS: LACTULOSE 20G/30ML UDC PO SCH ×3 (09:00→20:53)
[2018-07-06] MEDS: MICONAZOLE NITRATE 2% OINT 71GM TOP SCH ×2 (09:44→20:52)
[2018-07-06] MEDS: FERROUS SULFATE 325MG TABLET PO SCH ×3 (09:45→18:58)
[2018-07-06] MEDS: POTASSIUM CHLORIDE 20MEQ TABLET SR PO SCH (09:45)
[2018-07-06] MEDS: FAMOTIDINE 20MG TABLET PO SCH (09:45)
[2018-07-06 13:34] LABS: BASOPHILS % 0.7 % (0.0-2.0); EOSINOPHILS % 1.6 % (0.0-5.0); HEMATOCRIT. 34.5 % (36.0-48.0); LYMPHOCYTES % 13.5 % (20.0-50.0); MEAN CORPUSCULAR HEMOGLOBIN 25.5 pg (28.0-32.0); MEAN CORPUSCULAR VOLUME 80.3 fL (81.0-99.0); MONOCYTES % 12.3 % (2.0-8.0); NEUTROPHILS % 71.9 % (40.0-76.0); PLATELET 212 x1000/uL (130-400); RED CELL DISTRIBUTION WIDTH 19.1 % (11.6-14.6)
[2018-07-06 13:44] LABS: CHLORIDE 105 mEq/L (98-107)
[2018-07-06 13:50] LABS: PHOSPHORUS 2.9 mg/dL (2.5-4.9)
[2018-07-06 13:51] LABS: TOTAL IRON BINDING CAPACITY 329 ug/dL (250-450)
[2018-07-06 13:54] LABS: PROTHROMBIN TIME 19.7 sec (9.1-11.1)
[2018-07-06 14:08] LABS: FOLIC ACID (FOLATE) SERUM 15.4 ng/mL (>5.38)
[2018-07-06] MEDS ORDERED: BISACODYL 10MG SUPP PR NR (16:30)
[2018-07-06] MEDS ORDERED: FERROUS SULFATE 325MG TABLET PO SCH (17:00)
[2018-07-06] MEDS ORDERED: WARFARIN SODIUM 5MG TABLET PO SCH (18:00)
[2018-07-06] MEDS: AMIODARONE HCL 200 MG TABLET PO SCH (18:50)
[2018-07-06] MEDS: DOCUSATE SODIUM 100MG CAPSULE PO SCH (18:58)
[2018-07-06 20:00] VITALS: BP 111/63
[2018-07-06] MEDS: POLYETHYLENE GLYCOL 3350 (17GM) 1 DOSE PACK PO SCH (20:52)
[2018-07-06] MEDS: CARVEDILOL 3.125 MG TABLET PO SCH (20:52)
[2018-07-06 22:00] VITALS: BP 111/63
[2018-07-07] MEDS: LIDOCAINE HCL 4% CREAM 76GM TUBE TP PRN (00:39)
[2018-07-07] MEDS: IPRATROPIUM/ALBUTEROL 0.5-3(2.5)MG/3ML NEB HHN SCH ×4 (02:16→19:37)
[2018-07-07 07:11] LABS: INR 2.2; PROTHROMBIN TIME 22.1 sec (9.1-11.1)
[2018-07-07 07:15] LABS: BASOPHILS % 0.7 % (0.0-2.0); EOSINOPHILS % 1.7 % (0.0-5.0); HEMATOCRIT. 29.9 % (36.0-48.0); HEMOGLOBIN. 9.7 g/dL (12.0-16.0); MEAN CORPUSCULAR HEMOGLOBIN 25.6 pg (28.0-32.0); MEAN CORPUSCULAR VOLUME 79.2 fL (81.0-99.0); MONOCYTES % 13.4 % (2.0-8.0); NEUTROPHILS % 70.2 % (40.0-76.0); PLATELET 226 x1000/uL (130-400); RED BLOOD CELL COUNT 3.78 mill/uL (4.2-5.4); RED CELL DISTRIBUTION WIDTH 18.8 % (11.6-14.6)
[2018-07-07 08:00] VITALS: BP 113/65
[2018-07-07] MEDS: POTASSIUM CHLORIDE 20MEQ TABLET SR PO SCH (08:50)
[2018-07-07] MEDS: ASCORBIC ACID 500 MG TABLET PO SCH (08:50)
[2018-07-07] MEDS: CARVEDILOL 3.125 MG TABLET PO SCH ×2 (08:50→20:57)
[2018-07-07] MEDS: FAMOTIDINE 20MG TABLET PO SCH (08:50)
[2018-07-07] MEDS: AMIODARONE HCL 200 MG TABLET PO SCH ×2 (08:51→16:29)
[2018-07-07] MEDS: DOCUSATE SODIUM 100MG CAPSULE PO SCH ×3 (08:51→16:13)
[2018-07-07] MEDS: FUROSEMIDE 40MG TABLET PO SCH ×2 (08:51→16:29)
[2018-07-07] MEDS: FERROUS SULFATE 325MG TABLET PO SCH ×3 (08:51→16:14)
[2018-07-07] MEDS: LACTULOSE 20G/30ML UDC PO SCH (08:55)
[2018-07-07] MEDS: MICONAZOLE NITRATE 2% OINT 71GM TOP SCH ×2 (09:00→20:57)
[2018-07-07] MEDS ORDERED: WARFARIN SODIUM 5MG TABLET PO SCH (18:00)
[2018-07-07 20:00] VITALS: BP 121/68
[2018-07-07] MEDS: POLYETHYLENE GLYCOL 3350 (17GM) 1 DOSE PACK PO SCH (20:57)
[2018-07-08] MEDS: IPRATROPIUM/ALBUTEROL 0.5-3(2.5)MG/3ML NEB HHN SCH ×3 (02:37→22:04)
[2018-07-08] MEDS: FUROSEMIDE 40MG TABLET PO SCH ×2 (06:16→17:34)
[2018-07-08 06:20] LABS: BASOPHILS % 0.5 % (0.0-2.0); EOSINOPHILS % 1.8 % (0.0-5.0); HEMATOCRIT. 29.6 % (36.0-48.0); HEMOGLOBIN. 9.7 g/dL (12.0-16.0); LYMPHOCYTES % 12.7 % (20.0-50.0); MEAN CORPUSCULAR HEMOGLOBIN 25.9 pg (28.0-32.0); MEAN CORPUSCULAR VOLUME 79.2 fL (81.0-99.0); MEAN PLATELET VOLUME 8.6 fl (7.4-10.4); PLATELET 216 x1000/uL (130-400); RED BLOOD CELL COUNT 3.74 mill/uL (4.2-5.4); RED CELL DISTRIBUTION WIDTH 19.2 % (11.6-14.6)
[2018-07-08 06:23] LABS: INR 1.9; PROTHROMBIN TIME 18.8 sec (9.1-11.1)
[2018-07-08 06:25] LABS: CHLORIDE 104 mEq/L (98-107)
[2018-07-08 08:00] VITALS: BP 130/77
[2018-07-08] MEDS: LACTULOSE 20G/30ML UDC PO SCH (10:35)
[2018-07-08] MEDS: FERROUS SULFATE 325MG TABLET PO SCH ×3 (10:36→17:33)
[2018-07-08] MEDS: CARVEDILOL 3.125 MG TABLET PO SCH ×2 (10:36→22:00)
[2018-07-08] MEDS: FAMOTIDINE 20MG TABLET PO SCH (10:36)
[2018-07-08] MEDS: ASCORBIC ACID 500 MG TABLET PO SCH (10:36)
[2018-07-08] MEDS: AMIODARONE HCL 200 MG TABLET PO SCH ×2 (10:36→17:34)
[2018-07-08] MEDS: POTASSIUM CHLORIDE 20MEQ TABLET SR PO SCH (10:36)
[2018-07-08] MEDS: MICONAZOLE NITRATE 2% OINT 71GM TOP SCH ×2 (12:58→22:02)
[2018-07-08] MEDS: DOCUSATE SODIUM 100MG CAPSULE PO SCH ×2 (12:58→17:00)
[2018-07-08] MEDS ORDERED: MEROPENEM 1,000 MG in SODIUM CHLORIDE 0.9% 100 ML IV SCH (14:15)
[2018-07-08] MEDS ORDERED: MEROPENEM 1000MG in NORMAL SALINE 100ML IV SCH (15:00)
[2018-07-08] MEDS ORDERED: WARFARIN SODIUM 5MG TABLET PO SCH (18:00)
[2018-07-08 20:00] VITALS: BP 120/84
[2018-07-08] MEDS: POLYETHYLENE GLYCOL 3350 (17GM) 1 DOSE PACK PO SCH (21:00)
[2018-07-09] MEDS: IPRATROPIUM/ALBUTEROL 0.5-3(2.5)MG/3ML NEB HHN SCH ×3 (03:02→21:57)
[2018-07-09] MEDS: FUROSEMIDE 40MG TABLET PO SCH ×2 (06:19→17:10)
[2018-07-09 06:52] LABS: INR 1.7
[2018-07-09 07:53] VITALS: BP 115/75
[2018-07-09] MEDS: POTASSIUM CHLORIDE 20MEQ TABLET SR PO SCH ×2 (08:41→17:10)
[2018-07-09] MEDS: LACTULOSE 20G/30ML UDC PO SCH ×2 (08:41→08:55)
[2018-07-09] MEDS: ASCORBIC ACID 500 MG TABLET PO SCH (08:42)
[2018-07-09] MEDS: FAMOTIDINE 20MG TABLET PO SCH (08:42)
[2018-07-09] MEDS: DOCUSATE SODIUM 100MG CAPSULE PO SCH ×3 (08:42→17:11)
[2018-07-09] MEDS: FERROUS SULFATE 325MG TABLET PO SCH ×3 (08:42→17:11)
[2018-07-09] MEDS: CARVEDILOL 3.125 MG TABLET PO SCH ×2 (08:42→21:46)
[2018-07-09] MEDS: AMIODARONE HCL 200 MG TABLET PO SCH ×2 (08:42→17:11)
[2018-07-09] MEDS: MICONAZOLE NITRATE 2% OINT 71GM TOP SCH ×2 (08:43→21:44)
[2018-07-09] MEDS: CLOTRIMAZOLE/BETAMETHASONE 1/0.05% CREAM 15GM TOP SCH ×2 (08:44→18:05)
[2018-07-09] MEDS ORDERED: MEROPENEM 1,000 MG in SODIUM CHLORIDE 0.9% 100 ML IV SCH (14:30)
[2018-07-09] MEDS ORDERED: WARFARIN SODIUM 3MG TABLET PO SCH (18:00)
[2018-07-09 20:00] VITALS: BP 105/70
[2018-07-09] MEDS: POLYETHYLENE GLYCOL 3350 (17GM) 1 DOSE PACK PO SCH (21:00)
[2018-07-10] MEDS: IPRATROPIUM/ALBUTEROL 0.5-3(2.5)MG/3ML NEB HHN SCH ×4 (02:37→21:12)
[2018-07-10] MEDS: FUROSEMIDE 40MG TABLET PO SCH ×2 (06:20→17:29)
[2018-07-10 07:44] LABS: BASOPHILS % 0.6 % (0.0-2.0); EOSINOPHILS % 1.3 % (0.0-5.0); HEMATOCRIT. 34.1 % (36.0-48.0); HEMOGLOBIN. 10.7 g/dL (12.0-16.0); LYMPHOCYTES % 10.7 % (20.0-50.0); MEAN CORPUSCULAR HEMOGLOBIN 25.4 pg (28.0-32.0); MEAN CORPUSCULAR VOLUME 80.7 fL (81.0-99.0); MEAN PLATELET VOLUME 9.3 fl (7.4-10.4); MONOCYTES % 8.5 % (2.0-8.0); NEUTROPHILS % 78.9 % (40.0-76.0); PLATELET 258 x1000/uL (130-400); RED BLOOD CELL COUNT 4.22 mill/uL (4.2-5.4); RED CELL DISTRIBUTION WIDTH 19.7 % (11.6-14.6)
[2018-07-10 07:53] LABS: CHLORIDE 102 mEq/L (98-107)
[2018-07-10 08:00] VITALS: BP 135/94
[2018-07-10 08:03] LABS: INR 1.5; PROTHROMBIN TIME 15.3 sec (9.1-11.1)
[2018-07-10] MEDS: CLOTRIMAZOLE/BETAMETHASONE 1/0.05% CREAM 15GM TOP SCH ×2 (08:55→17:21)
[2018-07-10] MEDS: ASCORBIC ACID 500 MG TABLET PO SCH (08:56)
[2018-07-10] MEDS: CARVEDILOL 3.125 MG TABLET PO SCH ×2 (08:56→20:39)
[2018-07-10] MEDS: POTASSIUM CHLORIDE 20MEQ TABLET SR PO SCH ×2 (08:56→17:22)
[2018-07-10] MEDS: FAMOTIDINE 20MG TABLET PO SCH (08:56)
[2018-07-10] MEDS: AMIODARONE HCL 200 MG TABLET PO SCH ×2 (08:57→17:28)
[2018-07-10] MEDS: FERROUS SULFATE 325MG TABLET PO SCH ×3 (08:57→17:22)
[2018-07-10] MEDS: DOCUSATE SODIUM 100MG CAPSULE PO SCH ×2 (08:57→17:29)
[2018-07-10] MEDS: LACTULOSE 20G/30ML UDC PO SCH (08:57)
[2018-07-10] MEDS: MICONAZOLE NITRATE 2% OINT 71GM TOP SCH ×2 (09:00→20:40)
[2018-07-10] MEDS: LIDOCAINE HCL 4% CREAM 76GM TUBE TP PRN (17:21)
[2018-07-10] MEDS ORDERED: WARFARIN SODIUM 7.5MG TABLET PO SCH (18:00)
[2018-07-10 20:00] VITALS: BP 134/75
[2018-07-10] MEDS: POLYETHYLENE GLYCOL 3350 (17GM) 1 DOSE PACK PO SCH (20:40)
[2018-07-11] MEDS: IPRATROPIUM/ALBUTEROL 0.5-3(2.5)MG/3ML NEB HHN SCH (01:53)
[2018-07-11] MEDS: FUROSEMIDE 40MG TABLET PO SCH ×2 (06:52→17:52)
[2018-07-11 07:02] LABS: INR 1.7
[2018-07-11 08:40] VITALS: BP 100/63
[2018-07-11] MEDS: LACTULOSE 20G/30ML UDC PO SCH (09:00)
[2018-07-11] MEDS: CARVEDILOL 3.125 MG TABLET PO SCH (09:00)
[2018-07-11] MEDS: AMIODARONE HCL 200 MG TABLET PO SCH ×2 (09:08→17:53)
[2018-07-11] MEDS: ASCORBIC ACID 500 MG TABLET PO SCH (09:08)
[2018-07-11] MEDS: FERROUS SULFATE 325MG TABLET PO SCH ×3 (09:08→17:53)
[2018-07-11] MEDS: FAMOTIDINE 20MG TABLET PO SCH (09:08)
[2018-07-11] MEDS: POTASSIUM CHLORIDE 20MEQ TABLET SR PO SCH ×2 (09:08→17:53)
[2018-07-11] MEDS: DOCUSATE SODIUM 100MG CAPSULE PO SCH ×2 (09:09→17:53)
[2018-07-11] MEDS: CLOTRIMAZOLE/BETAMETHASONE 1/0.05% CREAM 15GM TOP SCH ×2 (09:09→17:53)
[2018-07-11] MEDS: MICONAZOLE NITRATE 2% OINT 71GM TOP SCH (09:09)
[2018-07-11 11:09] VITALS: BP 112/68
[2018-07-11] MEDS ORDERED: WARFARIN SODIUM 3MG TABLET PO NR (18:00)
[2018-07-12 14:22] LABS: 25-HYDROXY VITAMIN D3 8.4 ng/mL (.)
== END 2018-07-11 18:30 | disposition home health service (06) | DRG 947 ==
PROVIDERS: ADMIT Physical Medicine & Rehabilitation Spinal Cord Injury Medicine; ATTEND Internal Medicine
DX: R53.81 Other malaise (principal); J96.01 Acute respiratory failure with hypoxia; A41.9 Sepsis, unspecified organism; I50.23 Acute on chronic systolic (congestive) heart failure; G62.81 Critical illness polyneuropathy; N39.0 Urinary tract infection, site not specified; J44.1 Chronic obstructive pulmonary disease with (acute) exacerbation; N17.9 Acute kidney failure, unspecified; E87.2 Acidosis; E44.1 Mild protein-calorie malnutrition; I42.9 Cardiomyopathy, unspecified; D68.32 Hemorrhagic disorder due to extrinsic circulating anticoagulants; I13.0 Hypertensive heart and chronic kidney disease with heart failure and stage 1 through stage 4 chronic kidney disease, or unspecified chronic kidney disease; L03.116 Cellulitis of left lower limb; L03.115 Cellulitis of right lower limb; Z68.44 Body mass index [BMI] 60.0-69.9, adult; R20.0 Anesthesia of skin; M19.90 Unspecified osteoarthritis, unspecified site; R26.9 Unspecified abnormalities of gait and mobility; E66.01 Morbid (severe) obesity due to excess calories; R74.0 Nonspecific elevation of levels of transaminase and lactic acid dehydrogenase [LDH]; B96.20 Unspecified Escherichia coli [E. coli] as the cause of diseases classified elsewhere; E11.42 Type 2 diabetes mellitus with diabetic polyneuropathy; I48.0 Paroxysmal atrial fibrillation; I27.22 Pulmonary hypertension due to left heart disease; E78.5 Hyperlipidemia, unspecified; K76.0 Fatty (change of) liver, not elsewhere classified; R79.89 Other specified abnormal findings of blood chemistry; E87.70 Fluid overload, unspecified; D50.9 Iron deficiency anemia, unspecified; F32.9 Major depressive disorder, single episode, unspecified; E87.6 Hypokalemia; Z16.12 Extended spectrum beta lactamase (ESBL) resistance; N93.9 Abnormal uterine and vaginal bleeding, unspecified; T45.515A Adverse effect of anticoagulants, initial encounter; F10.11 Alcohol abuse, in remission; F19.11 Other psychoactive substance abuse, in remission; I95.9 Hypotension, unspecified; N18.9 Chronic kidney disease, unspecified; E11.22 Type 2 diabetes mellitus with diabetic chronic kidney disease; L30.9 Dermatitis, unspecified; B35.3 Tinea pedis; I89.0 Lymphedema, not elsewhere classified; F06.31 Mood disorder due to known physiological condition with depressive features; F41.9 Anxiety disorder, unspecified; Z88.0 Allergy status to penicillin; Y92.89 Other specified places as the place of occurrence of the external cause; Z79.01 Long term (current) use of anticoagulants; Z79.84 Long term (current) use of oral hypoglycemic drugs; Z82.49 Family history of ischemic heart disease and other diseases of the circulatory system; Z83.3 Family history of diabetes mellitus; Z87.891 Personal history of nicotine dependence; Z91.14 Patient's other noncompliance with medication regimen; Z71.3 Dietary counseling and surveillance
CPT/HCPCS: 36415; 80048; 82306; 82607; 82728; 82746; 83540; 83550; 83735; 84100; 84134; 84443; 87077; 87186; 87804; 93005; 94640; 97110; 97116; 97150; 97162; 97166; 97530; 97535; 97542; J2185; J7050; J7620

== ENCOUNTER 2018-10-08 13:39 | Inpatient (IN) | payer MEDICARE, MEDICAID ==
[~2018-10-08] VITALS: Ht 180.3 cm; Wt 186.1 kg
[2018-10-08] MEDS: CLINDAMYCIN 900 MG in DEXTROSE 5% WATER 50 ML IV ONE ×2 (14:00→14:11)
[2018-10-08] MEDS ORDERED: DILTIAZEM HCL 5MG/ML 5ML VIAL IV ONE ×3 (14:45→19:00)
[2018-10-08 14:47] LABS: CHLORIDE 106 mEq/L (98-107)
[2018-10-08 14:48] LABS: INR 1.6; PROTHROMBIN TIME 15.9 sec (9.6-11.0)
[2018-10-08 14:49] LABS: HEMATOCRIT. 35.8 % (36.0-48.0); HEMOGLOBIN. 11.2 g/dL (12.0-16.0); MEAN CORPUSCULAR HEMOGLOBIN 25.5 pg (28.0-32.0); MEAN CORPUSCULAR VOLUME 81.6 fL (81.0-99.0); MEAN PLATELET VOLUME 8.9 fl (7.4-10.4); PLATELET 310 x1000/uL (130-400); RED BLOOD CELL COUNT 4.39 mill/uL (4.2-5.4); RED CELL DISTRIBUTION WIDTH 20.7 % (11.6-14.6)
[2018-10-08] MEDS ORDERED: SODIUM CHLORIDE 0.9% 1000ML BAG (SEPSIS BOLUS) IV ONE (15:00)
[2018-10-08 15:19] LABS: PLATELET ESTIMATE NORMAL
[2018-10-08] MEDS ORDERED: AZTREONAM 1 G in DEXTROSE 5% WATER 50 ML IV STA (15:24)
[2018-10-08] MEDS ORDERED: VANCOMYCIN 1 G PREMIX 200 ML IV SCH ×2 (15:30→17:30)
[2018-10-08 15:45] LABS: BG BASE EXCESS -0.5 mmol/L (-2.0-2.0); BG BILEVEL POS AIRWAY PRESSURE 15/5; BG CARBOXYHEMOGLOBIN 1.1 % (0.5-1.5); BG DEOXYHEMOGLOBIN 0.7 % (0.0-5.0); BG FRACTION INSPIRED OXYGEN 60; BG METHEMOGLOBIN 0.4 % (0.0-1.5); BG OXYGEN SATURATION 99.3 % (92.0-98.5); BG OXYHEMOGLOBIN 97.8 % (94.0-97.0); BG PCO2 38.7 mmHg (35.0-45.0); BG PO2 177.5 mmHg (75.0-100.0); BG SAMPLE SITE RIGHT RADIAL; BG VENT MODE MASK - BIPAP; BG VENT RATE 14 set
[2018-10-08] MEDS ORDERED: IPRATROPIUM/ALBUTEROL 0.5-3(2.5)MG/3ML NEB INH PRN (17:30)
[2018-10-08] MEDS ORDERED: ENOXAPARIN 40MG/0.4ML SYR SUBCUT SCH (17:30)
[2018-10-08] MEDS ORDERED: ONDANSETRON HCL 4MG/2ML INJ IV PRN (17:30)
[2018-10-08] MEDS ORDERED: HYDROCODONE/ACETAMINOPHEN 5/325MG TABLET PO PRN (17:30)
[2018-10-08] MEDS ORDERED: DOCUSATE SODIUM 100MG CAPSULE PO PRN (17:30)
[2018-10-09] VITALS (13 sets, daily range): BP systolic 107–155; BP diastolic 57–91
[2018-10-09] MEDS ORDERED: VANCOMYCIN 2,000 MG in DEXT 5% WATER 500 ML IV SCH (02:00)
[2018-10-09] MEDS ORDERED: DILTIAZEM HCL 5MG/ML 5ML VIAL IV PRN (06:15)
[2018-10-09 06:55] LABS: HEMATOCRIT. 34.3 % (36.0-48.0); HEMOGLOBIN. 10.7 g/dL (12.0-16.0); MEAN CORPUSCULAR HEMOGLOBIN 25.7 pg (28.0-32.0); MEAN CORPUSCULAR VOLUME 82.4 fL (81.0-99.0); MEAN PLATELET VOLUME 9.1 fl (7.4-10.4); PLATELET 316 x1000/uL (130-400); RED BLOOD CELL COUNT 4.16 mill/uL (4.2-5.4); RED CELL DISTRIBUTION WIDTH 20.2 % (11.6-14.6)
[2018-10-09] MEDS ORDERED: DILTIAZEM HCL 60MG TABLET PO SCH (07:00)
[2018-10-09] MEDS: DILTIAZEM HCL 60MG TABLET PO SCH ×3 (07:38→17:53)
[2018-10-09 08:35] LABS: CHLORIDE 105 mEq/L (98-107)
[2018-10-09 08:46] LABS: LDL CHOLESTEROL 70 mg/dL (5-100)
[2018-10-09 08:47] LABS: CREATINE KINASE 51 IU/L (26-192)
[2018-10-09 08:57] LABS: CREATINE KINASE MB FRACTION 2.7 ng/mL (0.5-3.6); HDL CHOLESTEROL 11 mg/dL (40-59)
[2018-10-09] MEDS ORDERED: ENOXAPARIN 40MG/0.4ML SYR SUBCUT SCH (09:00)
[2018-10-09] MEDS ORDERED: WARF-53 MT (09:20)
[2018-10-09] MEDS ORDERED: ASPI-1159 MT (09:20)
[2018-10-09] MEDS ORDERED: DOCU-138 MT (09:20)
[2018-10-09] MEDS ORDERED: POTA20TA82 MT (09:20)
[2018-10-09] MEDS ORDERED: CHOL500063 MT (09:20)
[2018-10-09] MEDS ORDERED: FURO80TA87 MT (09:20)
[2018-10-09] MEDS ORDERED: FLUT1DIS2 INH (09:20)
[2018-10-09] MEDS ORDERED: METO25TA6 MT (09:20)
[2018-10-09] MEDS ORDERED: CARV3.1242 MT (09:20)
[2018-10-09] MEDS ORDERED: FERR325T6 MT (09:20)
[2018-10-09] MEDS ORDERED: TC1U15 TP (09:20)
[2018-10-09] MEDS ORDERED: AMI2 PO (09:20)
[2018-10-09 09:48] LABS: PLATELET ESTIMATE NORMAL
[2018-10-09 11:12] LABS: BG BASE EXCESS -5.2 mmol/L (-2.0-2.0); BG CARBOXYHEMOGLOBIN 0.7 % (0.5-1.5); BG DEOXYHEMOGLOBIN 6.3 % (0.0-5.0); BG FRACTION INSPIRED OXYGEN 28; BG HCO3 ACT 19.3 mmol/L (22.0-26.0); BG METHEMOGLOBIN 0.3 % (0.0-1.5); BG OXYGEN SATURATION 93.6 % (92.0-98.5); BG OXYHEMOGLOBIN 92.7 % (94.0-97.0); BG PH 7.372 (7.350-7.450); BG PO2 73.7 mmHg (75.0-100.0); BG SAMPLE SITE RIGHT BRACHIAL; BG TOTAL HEMOGLOBIN 11.5 g/dL (12.0-18.0); BG VENT MODE NASAL CANNULA
[2018-10-09 12:44] LABS: INR 1.7; PROTHROMBIN TIME 16.8 sec (9.6-11.0)
[2018-10-09] MEDS: FERROUS SULFATE 325MG TABLET PO SCH ×2 (13:55→17:52)
[2018-10-09] MEDS: BUMETANIDE 1MG/4ML VIAL IV SCH ×2 (15:54→17:53)
[2018-10-09] MEDS: IPRATROPIUM BROMIDE (0.02%) 0.5MG/2.5ML NEB HHN SCH ×2 (16:17→21:13)
[2018-10-09] MEDS: APIXABAN 5 MG TABLET PO SCH (17:52)
[2018-10-09] MEDS ORDERED: WARFARIN SODIUM 5MG TABLET PO SCH (18:00)
[2018-10-09] MEDS: AMIODARONE HCL 200 MG TABLET PO SCH (21:44)
[2018-10-09] MEDS: CARVEDILOL 6.25 MG TABLET PO SCH (21:45)
[2018-10-10] VITALS (12 sets, daily range): BP systolic 98–127; BP diastolic 53–81
[2018-10-10] MEDS ORDERED: VANCOMYCIN 2,000 MG in DEXT 5% WATER 500 ML IV SCH ×2
[2018-10-10] MEDS: IPRATROPIUM BROMIDE (0.02%) 0.5MG/2.5ML NEB HHN SCH ×4 (02:06→21:18)
[2018-10-10] MEDS: DILTIAZEM HCL 60MG TABLET PO SCH ×4 (06:00→18:54)
[2018-10-10 06:53] LABS: INR 1.7; PROTHROMBIN TIME 17.2 sec (9.6-11.0)
[2018-10-10] MEDS: APIXABAN 5 MG TABLET PO SCH ×2 (08:32→16:33)
[2018-10-10] MEDS: FERROUS SULFATE 325MG TABLET PO SCH ×3 (08:32→18:54)
[2018-10-10] MEDS: AMIODARONE HCL 200 MG TABLET PO SCH ×2 (08:33→21:56)
[2018-10-10] MEDS: POTASSIUM CHLORIDE 20MEQ TABLET SR PO SCH (08:33)
[2018-10-10] MEDS: BUMETANIDE 1MG/4ML VIAL IV SCH ×2 (08:34→16:33)
[2018-10-10] MEDS: CARVEDILOL 6.25 MG TABLET PO SCH ×2 (08:36→21:00)
[2018-10-10] MEDS ORDERED: ASPIRIN 81MG TABLET PO SCH (09:00)
[2018-10-10] MEDS: NYSTATIN POWDER 15GM TOP SCH (21:58)
[2018-10-11] VITALS (8 sets, daily range): BP systolic 111–156; BP diastolic 63–96
[2018-10-11] MEDS: IPRATROPIUM BROMIDE (0.02%) 0.5MG/2.5ML NEB HHN SCH ×4 (02:59→20:27)
[2018-10-11] MEDS: DILTIAZEM HCL 60MG TABLET PO SCH ×5 (07:00→23:33)
[2018-10-11] MEDS: FERROUS SULFATE 325MG TABLET PO SCH ×3 (08:49→17:39)
[2018-10-11] MEDS: POTASSIUM CHLORIDE 20MEQ TABLET SR PO SCH (08:49)
[2018-10-11] MEDS: CARVEDILOL 6.25 MG TABLET PO SCH (08:49)
[2018-10-11] MEDS: BUMETANIDE 1MG/4ML VIAL IV SCH (08:49)
[2018-10-11] MEDS: NYSTATIN POWDER 15GM TOP SCH ×3 (08:50→17:36)
[2018-10-11] MEDS: AMIODARONE HCL 200 MG TABLET PO SCH ×2 (08:50→20:33)
[2018-10-11] MEDS: APIXABAN 5 MG TABLET PO SCH ×2 (08:50→17:36)
[2018-10-11] MEDS ORDERED: VANCOMYCIN 2,000 MG in DEXT 5% WATER 500 ML IV SCH (11:30)
[2018-10-11] MEDS: METOLAZONE 5MG TABLET PO SCH (17:36)
[2018-10-11] MEDS: FUROSEMIDE 40MG/4ML VIAL IVP SCH (17:36)
[2018-10-11] MEDS: CARVEDILOL 12.5MG TABLET PO SCH (20:33)
[2018-10-11] MEDS: DIPHENHYDRAMINE 50MG/ML VIAL IV PRN (21:54)
[2018-10-11] MEDS: VANCOMYCIN 1500MG in DEXTROSE 5% WATER 250ML IV SCH (21:54)
[2018-10-12] VITALS (12 sets, daily range): BP systolic 94–143; BP diastolic 22–88
[2018-10-12] MEDS: IPRATROPIUM BROMIDE (0.02%) 0.5MG/2.5ML NEB HHN SCH ×2 (01:25→20:44)
[2018-10-12] MEDS: FUROSEMIDE 40MG/4ML VIAL IVP SCH ×3 (02:48→16:44)
[2018-10-12] MEDS: DILTIAZEM HCL 60MG TABLET PO SCH ×3 (06:09→18:04)
[2018-10-12 06:57] LABS: HEMATOCRIT. 32.7 % (36.0-48.0); HEMOGLOBIN. 10.2 g/dL (12.0-16.0); MEAN CORPUSCULAR HEMOGLOBIN 25.3 pg (28.0-32.0); MEAN CORPUSCULAR VOLUME 81.7 fL (81.0-99.0); MEAN PLATELET VOLUME 8.8 fl (7.4-10.4); PLATELET 266 x1000/uL (130-400); RED BLOOD CELL COUNT 4.01 mill/uL (4.2-5.4); RED CELL DISTRIBUTION WIDTH 20.5 % (11.6-14.6)
[2018-10-12 07:22] LABS: CHLORIDE 103 mEq/L (98-107)
[2018-10-12 08:08] LABS: PLATELET ESTIMATE NORMAL
[2018-10-12] MEDS: VANCOMYCIN 1500MG in DEXTROSE 5% WATER 250ML IV SCH ×2 (09:13→20:41)
[2018-10-12] MEDS: NYSTATIN POWDER 15GM TOP SCH ×3 (09:14→16:44)
[2018-10-12] MEDS: APIXABAN 5 MG TABLET PO SCH ×2 (09:15→16:43)
[2018-10-12] MEDS: ACETAMINOPHEN 325MG TABLET PO PRN (09:15)
[2018-10-12] MEDS: FERROUS SULFATE 325MG TABLET PO SCH ×3 (09:16→16:43)
[2018-10-12] MEDS: METOLAZONE 5MG TABLET PO SCH (09:16)
[2018-10-12] MEDS: AMIODARONE HCL 200 MG TABLET PO SCH ×2 (09:16→20:42)
[2018-10-12] MEDS: POTASSIUM CHLORIDE 20MEQ TABLET SR PO SCH ×2 (09:16→16:43)
[2018-10-12] MEDS: DIPHENHYDRAMINE 50MG/ML VIAL IV PRN ×2 (09:17→18:04)
[2018-10-12] MEDS: CARVEDILOL 12.5MG TABLET PO SCH ×2 (11:01→20:42)
[2018-10-12] MEDS: POTASSIUM CHLORIDE INJ 40 MEQ in DEXT 5% WATER 250 ML IV SCH ×2 (11:02→17:24)
[2018-10-13] VITALS (13 sets, daily range): BP systolic 91–137; BP diastolic 36–82
[2018-10-13] MEDS: DILTIAZEM HCL 60MG TABLET PO SCH ×6 (00:39→18:03)
[2018-10-13] MEDS: IPRATROPIUM BROMIDE (0.02%) 0.5MG/2.5ML NEB HHN SCH ×4 (01:40→21:22)
[2018-10-13] MEDS: GUAIFENESIN 200MG/10ML SUGAR FREE UDC PO PRN (03:10)
[2018-10-13 06:05] LABS: HEMOGLOBIN. 10.9 g/dL (12.0-16.0); MEAN CORPUSCULAR HEMOGLOBIN 25.5 pg (28.0-32.0); MEAN PLATELET VOLUME 8.9 fl (7.4-10.4); PLATELET 222 x1000/uL (130-400); RED BLOOD CELL COUNT 4.27 mill/uL (4.2-5.4); RED CELL DISTRIBUTION WIDTH 20.7 % (11.6-14.6)
[2018-10-13] MEDS: FUROSEMIDE 40MG/4ML VIAL IVP SCH ×2 (06:46→17:51)
[2018-10-13 07:54] LABS: CHLORIDE 101 mEq/L (98-107)
[2018-10-13] MEDS: POTASSIUM CHLORIDE 20MEQ TABLET SR PO SCH ×2 (08:56→17:52)
[2018-10-13] MEDS: NYSTATIN POWDER 15GM TOP SCH ×3 (08:56→17:53)
[2018-10-13] MEDS: METOLAZONE 5MG TABLET PO SCH (08:56)
[2018-10-13] MEDS: APIXABAN 5 MG TABLET PO SCH ×2 (08:56→17:52)
[2018-10-13] MEDS: FERROUS SULFATE 325MG TABLET PO SCH ×3 (08:56→17:52)
[2018-10-13] MEDS: AMIODARONE HCL 200 MG TABLET PO SCH ×2 (08:59→21:00)
[2018-10-13] MEDS: CARVEDILOL 12.5MG TABLET PO SCH ×2 (09:00→20:26)
[2018-10-13 11:15] LABS: PLATELET ESTIMATE NORMAL
[2018-10-13] MEDS ORDERED: POTASSIUM CHLORIDE 20MEQ TABLET SR PO SCH (12:15)
[2018-10-13] MEDS: VANCOMYCIN 1500MG in DEXTROSE 5% WATER 250ML IV SCH (20:25)
[2018-10-14] VITALS (12 sets, daily range): BP systolic 100–136; BP diastolic 62–93
[2018-10-14] MEDS: DILTIAZEM HCL 60MG TABLET PO SCH ×4 (00:47→17:27)
[2018-10-14] MEDS: IPRATROPIUM BROMIDE (0.02%) 0.5MG/2.5ML NEB HHN SCH ×4 (03:25→20:57)
[2018-10-14 06:53] LABS: HEMATOCRIT. 31.2 % (36.0-48.0); HEMOGLOBIN. 10.1 g/dL (12.0-16.0); MEAN CORPUSCULAR HEMOGLOBIN 26.1 pg (28.0-32.0); MEAN CORPUSCULAR VOLUME 80.7 fL (81.0-99.0); MEAN PLATELET VOLUME 8.3 fl (7.4-10.4); PLATELET 254 x1000/uL (130-400); RED BLOOD CELL COUNT 3.86 mill/uL (4.2-5.4); RED CELL DISTRIBUTION WIDTH 20.4 % (11.6-14.6)
[2018-10-14 07:16] LABS: CHLORIDE 99 mEq/L (98-107)
[2018-10-14] MEDS: FUROSEMIDE 40MG/4ML VIAL IVP SCH (07:21)
[2018-10-14] MEDS: METOLAZONE 5MG TABLET PO SCH (09:24)
[2018-10-14] MEDS: FERROUS SULFATE 325MG TABLET PO SCH ×3 (09:24→17:26)
[2018-10-14] MEDS: POTASSIUM CHLORIDE 20MEQ TABLET SR PO SCH ×2 (09:24→17:26)
[2018-10-14] MEDS: APIXABAN 5 MG TABLET PO SCH ×2 (09:24→17:26)
[2018-10-14] MEDS: AMIODARONE HCL 200 MG TABLET PO SCH ×2 (09:24→20:16)
[2018-10-14] MEDS: NYSTATIN POWDER 15GM TOP SCH ×3 (09:25→17:29)
[2018-10-14] MEDS: CARVEDILOL 12.5MG TABLET PO SCH ×2 (09:25→20:24)
[2018-10-14] MEDS ORDERED: POTASSIUM CHLORIDE INJ 40 MEQ in DEXT 5% WATER 250 ML IV NR (11:00)
[2018-10-14 11:11] LABS: PLATELET ESTIMATE NORMAL
[2018-10-14] MEDS: VANCOMYCIN 1500MG in DEXTROSE 5% WATER 250ML IV SCH (14:26)
[2018-10-14] MEDS ORDERED: COR12 PO (16:05)
[2018-10-14] MEDS ORDERED: AMI2 PO (16:05)
[2018-10-14] MEDS ORDERED: APIX5TAB PO (16:05)
[2018-10-14] MEDS ORDERED: DILT60TA35 PO (16:05)
[2018-10-14] MEDS ORDERED: MAGNESIUM 4 G PREMIX 100 ML IV SCH (17:00)
[2018-10-14] MEDS: DIPHENHYDRAMINE 50MG/ML VIAL IV PRN (20:15)
[2018-10-14] MEDS: LORAZEPAM 2MG/ML CPJ IV PRN (22:32)
[2018-10-15] VITALS (12 sets, daily range): BP systolic 90–133; BP diastolic 50–94
[2018-10-15] MEDS: DILTIAZEM HCL 60MG TABLET PO SCH ×5 (01:06→23:56)
[2018-10-15] MEDS: IPRATROPIUM BROMIDE (0.02%) 0.5MG/2.5ML NEB HHN SCH ×3 (03:05→21:37)
[2018-10-15] MEDS: CARVEDILOL 12.5MG TABLET PO SCH ×2 (09:00→20:40)
[2018-10-15] MEDS: VANCOMYCIN 1500MG in DEXTROSE 5% WATER 250ML IV SCH (09:31)
[2018-10-15] MEDS: ACETAMINOPHEN 325MG TABLET PO PRN (09:31)
[2018-10-15] MEDS: FERROUS SULFATE 325MG TABLET PO SCH ×3 (09:32→16:53)
[2018-10-15] MEDS: FUROSEMIDE 40MG/4ML VIAL IVP SCH (09:32)
[2018-10-15] MEDS: POTASSIUM CHLORIDE 20MEQ TABLET SR PO SCH ×2 (09:32→16:52)
[2018-10-15] MEDS: NYSTATIN POWDER 15GM TOP SCH ×3 (09:33→16:55)
[2018-10-15 10:00] LABS: HEMATOCRIT 33.4 % (36.0-48.0); HEMOGLOBIN 10.5 g/dL (12.0-16.0); MEAN CORPUSCULAR HEMOGLOBIN 25.8 pg (28.0-32.0); MEAN CORPUSCULAR VOLUME 81.8 fL (81.0-99.0); PLATELET 251 x1000/uL (130-400); RED BLOOD CELL COUNT 4.08 mill/uL (4.2-5.4); RED CELL DISTRIBUTION WIDTH 20.9 % (11.6-14.6)
[2018-10-15 10:03] LABS: CHLORIDE 97 mEq/L (98-107)
[2018-10-15] MEDS: AMIODARONE HCL 200 MG TABLET PO SCH ×2 (10:19→20:41)
[2018-10-15] MEDS: APIXABAN 5 MG TABLET PO SCH ×2 (11:10→16:52)
[2018-10-15] MEDS ORDERED: POTASSIUM CHLORIDE 20MEQ TABLET SR PO NR (11:45)
[2018-10-15] MEDS ORDERED: POTASSIUM CHLORIDE INJ 40 MEQ in DEXT 5% WATER 250 ML IV NR (13:00)
[2018-10-15] MEDS: DIPHENHYDRAMINE 50MG/ML VIAL IV PRN ×2 (16:52→22:10)
[2018-10-15] MEDS: LORAZEPAM 2MG/ML CPJ IV PRN (16:53)
[2018-10-16] VITALS (12 sets, daily range): BP systolic 95–118; BP diastolic 52–82
[2018-10-16] MEDS: LORAZEPAM 2MG/ML CPJ IV PRN (00:24)
[2018-10-16] MEDS: IPRATROPIUM BROMIDE (0.02%) 0.5MG/2.5ML NEB HHN SCH ×4 (02:06→20:15)
[2018-10-16] MEDS: VANCOMYCIN 1500MG in DEXTROSE 5% WATER 250ML IV SCH (02:09)
[2018-10-16] MEDS: DIPHENHYDRAMINE 50MG/ML VIAL IV PRN ×3 (02:09→20:52)
[2018-10-16] MEDS: DILTIAZEM HCL 60MG TABLET PO SCH ×3 (05:50→17:12)
[2018-10-16 06:23] LABS: HEMATOCRIT. 34.3 % (36.0-48.0); HEMOGLOBIN. 10.6 g/dL (12.0-16.0); MEAN CORPUSCULAR HEMOGLOBIN 25.3 pg (28.0-32.0); MEAN CORPUSCULAR VOLUME 81.5 fL (81.0-99.0); MEAN PLATELET VOLUME 8.2 fl (7.4-10.4); PLATELET 253 x1000/uL (130-400); RED CELL DISTRIBUTION WIDTH 20.9 % (11.6-14.6)
[2018-10-16 07:11] LABS: CHLORIDE 94 mEq/L (98-107)
[2018-10-16] MEDS: TRIAMCINOLONE ACETONIDE 0.025% CREAM 15GM TOP SCH (10:43)
[2018-10-16] MEDS: APIXABAN 5 MG TABLET PO SCH ×2 (10:44→17:12)
[2018-10-16] MEDS: FERROUS SULFATE 325MG TABLET PO SCH ×3 (10:44→17:12)
[2018-10-16] MEDS: AMIODARONE HCL 200 MG TABLET PO SCH ×2 (10:44→20:01)
[2018-10-16] MEDS: CARVEDILOL 12.5MG TABLET PO SCH ×2 (10:44→20:01)
[2018-10-16] MEDS: ACETAMINOPHEN 325MG TABLET PO PRN (10:44)
[2018-10-16] MEDS: FUROSEMIDE 40MG/4ML VIAL IVP SCH (10:45)
[2018-10-16] MEDS: POTASSIUM CHLORIDE 20MEQ TABLET SR PO SCH ×2 (10:45→17:13)
[2018-10-16] MEDS: NYSTATIN POWDER 15GM TOP SCH ×3 (10:46→17:12)
[2018-10-16] MEDS ORDERED: POTASSIUM CHLORIDE INJ 40 MEQ in DEXT 5% WATER 250 ML IV SCH (12:00)
[2018-10-16 15:20] LABS: PLATELET ESTIMATE NORMAL
[2018-10-16] MEDS: GUAIFENESIN 200MG/10ML SUGAR FREE UDC PO PRN (21:55)
[2018-10-17] VITALS (14 sets, daily range): BP systolic 106–138; BP diastolic 55–91
[2018-10-17] MEDS: DILTIAZEM HCL 60MG TABLET PO SCH ×4 (00:30→17:54)
[2018-10-17] MEDS: IPRATROPIUM BROMIDE (0.02%) 0.5MG/2.5ML NEB HHN SCH ×4 (01:55→20:08)
[2018-10-17 06:54] LABS: HEMATOCRIT. 32.2 % (36.0-48.0); HEMOGLOBIN. 10.3 g/dL (12.0-16.0); MEAN CORPUSCULAR HEMOGLOBIN 25.8 pg (28.0-32.0); MEAN CORPUSCULAR VOLUME 80.9 fL (81.0-99.0); MEAN PLATELET VOLUME 8.3 fl (7.4-10.4); PLATELET 213 x1000/uL (130-400); RED BLOOD CELL COUNT 3.99 mill/uL (4.2-5.4); RED CELL DISTRIBUTION WIDTH 20.7 % (11.6-14.6)
[2018-10-17 07:34] LABS: CHLORIDE 98 mEq/L (98-107)
[2018-10-17] MEDS: APIXABAN 5 MG TABLET PO SCH ×2 (08:34→17:53)
[2018-10-17] MEDS: FERROUS SULFATE 325MG TABLET PO SCH ×3 (08:34→17:53)
[2018-10-17] MEDS: FUROSEMIDE 40MG/4ML VIAL IVP SCH (08:34)
[2018-10-17] MEDS: POTASSIUM CHLORIDE 20MEQ TABLET SR PO SCH ×2 (08:34→17:53)
[2018-10-17] MEDS: AMIODARONE HCL 200 MG TABLET PO SCH (08:34)
[2018-10-17] MEDS: NYSTATIN POWDER 15GM TOP SCH ×3 (08:35→17:54)
[2018-10-17] MEDS: CARVEDILOL 12.5MG TABLET PO SCH (08:35)
[2018-10-17] MEDS: TRIAMCINOLONE ACETONIDE 0.025% CREAM 15GM TOP SCH (08:35)
[2018-10-17 10:29] LABS: PLATELET ESTIMATE NORMAL
[2018-10-17] MEDS ORDERED: VANCOMYCIN 1500MG in DEXTROSE 5% WATER 250ML IV SCH (12:00)
[2018-10-17] MEDS ORDERED: LORAZEPAM 2MG/ML CPJ IV PRN (13:00)
[2018-10-17] MEDS ORDERED: DILT60TA41 MT (17:33)
== END 2018-10-17 23:04 | disposition home or self-care (01) | DRG 291 ==
LOC: ER 13:39 → 5EST 17:00 → EDBEDREQTM 17:03 → EDBEDREQSVC 17:03 → EDBEDREQ 17:03 → ENRESERV 20:51
PROVIDERS: ADMIT Internal Medicine; ATTEND Internal Medicine
PROC: 02HV33Z Insertion of Infusion Device into Superior Vena Cava, Percutaneous Approach (ICD-10-PCS; principal; 2018-10-08)
PROC: B548ZZA Ultrasonography of Superior Vena Cava, Guidance (ICD-10-PCS; 2018-10-08)
PROC: 5A09357 Assistance with Respiratory Ventilation, Less than 24 Consecutive Hours, Continuous Positive Airway Pressure (ICD-10-PCS; 2018-10-08)
PROC: 5A09357 Assistance with Respiratory Ventilation, Less than 24 Consecutive Hours, Continuous Positive Airway Pressure (ICD-10-PCS; 2018-10-09)
DX: I50.23 Acute on chronic systolic (congestive) heart failure (principal); J96.21 Acute and chronic respiratory failure with hypoxia; E44.1 Mild protein-calorie malnutrition; I31.3 Pericardial effusion (noninflammatory); Z68.43 Body mass index [BMI] 50.0-59.9, adult; I42.9 Cardiomyopathy, unspecified; E87.2 Acidosis; I48.92 Unspecified atrial flutter; L03.115 Cellulitis of right lower limb; L03.116 Cellulitis of left lower limb; L97.929 Non-pressure chronic ulcer of unspecified part of left lower leg with unspecified severity; L97.919 Non-pressure chronic ulcer of unspecified part of right lower leg with unspecified severity; I27.20 Pulmonary hypertension, unspecified; D50.9 Iron deficiency anemia, unspecified; E11.9 Type 2 diabetes mellitus without complications; E66.01 Morbid (severe) obesity due to excess calories; E78.5 Hyperlipidemia, unspecified; E87.6 Hypokalemia; F32.9 Major depressive disorder, single episode, unspecified; I11.0 Hypertensive heart disease with heart failure; L30.8 Other specified dermatitis; I87.8 Other specified disorders of veins; I48.91 Unspecified atrial fibrillation; J44.9 Chronic obstructive pulmonary disease, unspecified; Z74.01 Bed confinement status; Z79.01 Long term (current) use of anticoagulants; Z79.84 Long term (current) use of oral hypoglycemic drugs; Z91.14 Patient's other noncompliance with medication regimen; Z91.19 Patient's noncompliance with other medical treatment and regimen; Z88.0 Allergy status to penicillin; Z79.899 Other long term (current) drug therapy; Z79.82 Long term (current) use of aspirin
CPT/HCPCS: 36415; 36569; 36600; 71045; 76937; 80048; 80061; 80202; 82375; 82550; 82553; 82805; 82962; 83036; 83605; 83735; 83880; 84100; 84134; 84145; 84443; 84484; 85027; 93005; 93306; 93308; 94640; 96365; 96366; 96368; 96375; 96376; 97110; 97162; 99291; A6261; C1725; J1200; J1650; J1940; J2060; J3370; J3475; J3480; J3490; J7030; J7040; J7050; J7060; J7620

== ENCOUNTER 2021-04-05 15:53 | Inpatient (IN) | payer OTHER, MEDICAID ==
[~2021-04-05] VITALS: Ht 177.8 cm; Wt 218.6 kg
[~2021-04-05 15:53] MED LIST changes: +ALBU05 IH; +ALBU18HF2 IH; +AMI2 PO; +APIX5TAB PO; +ASPI-1406 PO; +ATOR40TA70 MT; +ATROV INH; +CARV3.1242 PO; +CEPH-569 MT; +CLOT10TR2 MT; +COR6 PO; +DIGO-26 PO; +DOCU-138 PO; +ETOMIDATE 2MG/ML 10ML VIAL IV ONE; +FAMO20TA8 PO; +FLUT1BLS8 IH; +FLUT1DIS3 INH; +FURO-151 MT; +GUAI-740 MT; +LORA10TA7 PO; +MYCOC15 TP; +POTA20TA82 MT; -RIMRON; +SODIUM CHLORIDE 0.9% 10ML VIAL ONE; +TC1U15 TP; +VECURONIUM BROMIDE 10 MG/VIAL IV ONE; -WELLBUTRIN; -ZOLOFT
[2021-04-05] MEDS ORDERED: ALBUTEROL (0.083%) 2.5MG/3ML NEB HHN STA (16:18)
[2021-04-05] MEDS ORDERED: METHYLPREDNISOLONE SOD SUCC 125 MG/2 ML VIAL IV STA (16:18)
[2021-04-05] MEDS ORDERED: IPRATROPIUM BROMIDE (0.02%) 0.5MG/2.5ML NEB HHN STA (16:18)
[2021-04-05] MEDS ORDERED: FUROSEMIDE 40MG/4ML VIAL IV ONE (16:30)
[2021-04-05] MEDS ORDERED: NITROGLYCERIN OINT 1GM/INCH UDPKT TD ONE (16:30)
[2021-04-05] MEDS ORDERED: ASPIRIN 81MG TABLET PO ONE (16:30)
[2021-04-05 17:08] LABS: HEMATOCRIT. 28.3 % (36.0-48.0); HEMOGLOBIN. 7.7 g/dL (12.0-16.0); MEAN CORPUSCULAR HEMOGLOBIN 19.8 pg (28.0-32.0); MEAN CORPUSCULAR VOLUME 72.8 fL (81.0-99.0); MEAN PLATELET VOLUME 9.5 fl (7.4-10.4); PLATELET 309 x1000/uL (130-400); RED BLOOD CELL COUNT 3.89 mill/uL (4.2-5.4); RED CELL DISTRIBUTION WIDTH 22.6 % (11.6-14.6)
[2021-04-05 17:14] LABS: CHLORIDE 104 mEq/L (98-107)
[2021-04-05 17:21] LABS: INR 1.7; PARTIAL THROMBOPLASTIN TIME 28.9 sec (23.4-31.0); PROTHROMBIN TIME 17.4 sec (9.6-11.0)
[2021-04-05 17:27] LABS: PLATELET ESTIMATE NORMAL
[2021-04-05 18:19] LABS: BG BASE EXCESS 2.7 mmol/L (-2.0-2.0); BG CARBOXYHEMOGLOBIN 1.4 % (0.5-1.5); BG DEOXYHEMOGLOBIN 0.1 % (0.0-5.0); BG FRACTION INSPIRED OXYGEN 100; BG METHEMOGLOBIN 0.4 % (0.0-1.5); BG OXYGEN SATURATION 99.9 % (92.0-98.5); BG OXYHEMOGLOBIN 98.1 % (94.0-97.0); BG PCO2 62.7 mmHg (35.0-45.0); BG PH 7.298 (7.350-7.450); BG PO2 310.9 mmHg (75.0-100.0); BG SAMPLE SITE RIGHT RADIAL; BG TOTAL RESPIRATORY RATE 22 b/min; BG VENT MODE MASK - BIPAP
[2021-04-05] MEDS ORDERED: PROPOFOL 10MG/ML 100ML 100 ML IV STA ×2 (18:23→21:33)
[2021-04-05] MEDS ORDERED: VECURONIUM BROMIDE 10 MG/VIAL IV ONE (18:30)
[2021-04-05] MEDS ORDERED: ETOMIDATE 2MG/ML 10ML VIAL IV ONE (18:30)
[2021-04-05] MEDS ORDERED: ACETAMINOPHEN 650MG/20.3ML UDC GT PRN (19:15)
[2021-04-05] MEDS ORDERED: CLONIDINE 0.1MG TABLET PO PRN (19:15)
[2021-04-05] MEDS ORDERED: VANCOMYCIN 1 G PREMIX 200 ML IV ONE (19:15)
[2021-04-05] MEDS ORDERED: LEVOFLOXACIN 750MG PREMIX 150 ML IV ONE (19:15)
[2021-04-05] MEDS ORDERED: IPRATROPIUM/ALBUTEROL 0.5-3(2.5)MG/3ML NEB HHN PRN (19:15)
[2021-04-05 20:08] LABS: BG BASE EXCESS 3.5 mmol/L (-2.0-2.0); BG CARBOXYHEMOGLOBIN 1.3 % (0.5-1.5); BG DEOXYHEMOGLOBIN 1.3 % (0.0-5.0); BG FRACTION INSPIRED OXYGEN 60; BG HCO3 ACT 27.2 mmol/L (22.0-26.0); BG METHEMOGLOBIN 0.5 % (0.0-1.5); BG OXYGEN SATURATION 98.7 % (92.0-98.5); BG OXYHEMOGLOBIN 96.9 % (94.0-97.0); BG PCO2 37.6 mmHg (35.0-45.0); BG PH 7.478 (7.350-7.450); BG PO2 115.9 mmHg (75.0-100.0); BG SAMPLE SITE RIGHT BRACHIAL; BG TOTAL HEMOGLOBIN 8.5 g/dL (12.0-18.0); BG TOTAL RESPIRATORY RATE 20 b/min; BG VENT MODE VENT - AC
[2021-04-05 21:26] LABS: CLARITY URINE CLEAR (CLEAR); COLOR URINE DARK YELLOW (YELLOW); KETONES URINE NEGATIVE (NEGATIVE); LEUKOCYTE ESTERASE URINE NEGATIVE (NEGATIVE); NITRITE URINE NEGATIVE (NEGATIVE); OCCULT BLOOD URINE NEGATIVE (NEGATIVE); PROTEIN URINE TRACE (NEGATIVE); SPECIFIC GRAVITY URINE 1.017 (1.005-1.030)
[2021-04-05 21:39] LABS: *BARBITURATES SCREEN URINE NEGATIVE (NEGATIVE)
[2021-04-05 21:40] LABS: *AMPHETAMINES SCREEN URINE NEGATIVE (NEGATIVE); *BENZODIAZEPINES SCREEN URINE NEGATIVE (NEGATIVE); *COCAINE SCREEN URINE NEGATIVE (NEGATIVE); METHADONE URINE SCREEN NEGATIVE (NEGATIVE); OPIATES URINE SCREEN NEGATIVE (NEGATIVE); PHENCYCLIDINE URINE SCREEN NEGATIVE (NEGATIVE)
[2021-04-05 21:41] LABS: CANNABINOID URINE SCREEN NEGATIVE (NEGATIVE)
[2021-04-06] VITALS (53 sets, daily range): BP systolic 115–154; BP diastolic 67–109
[2021-04-06] MEDS: PROPOFOL 10MG/ML 100ML 100 ML IV PRN ×8 (04:30→23:51)
[2021-04-06 04:47] LABS: HEMATOCRIT. 25.8 % (36.0-48.0); HEMOGLOBIN. 7.6 g/dL (12.0-16.0); MEAN CORPUSCULAR HEMOGLOBIN 20.2 pg (28.0-32.0); MEAN CORPUSCULAR VOLUME 68.2 fL (81.0-99.0); MEAN PLATELET VOLUME 9.3 fl (7.4-10.4); PLATELET 288 x1000/uL (130-400); RED BLOOD CELL COUNT 3.79 mill/uL (4.2-5.4); RED CELL DISTRIBUTION WIDTH 22.3 % (11.6-14.6)
[2021-04-06 04:54] LABS: CHLORIDE 104 mEq/L (98-107)
[2021-04-06 08:32] LABS: BG BASE EXCESS 6.8 mmol/L (-2.0-2.0); BG CARBOXYHEMOGLOBIN 1.4 % (0.5-1.5); BG DEOXYHEMOGLOBIN 2.7 % (0.0-5.0); BG HCO3 ACT 29.4 mmol/L (22.0-26.0); BG METHEMOGLOBIN 0.3 % (0.0-1.5); BG OXYGEN SATURATION 97.3 % (92.0-98.5); BG OXYHEMOGLOBIN 95.6 % (94.0-97.0); BG PCO2 33.8 mmHg (35.0-45.0); BG PH 7.558 (7.350-7.450); BG PO2 81.6 mmHg (75.0-100.0); BG SAMPLE SITE RIGHT RADIAL; BG TOTAL HEMOGLOBIN 8.3 g/dL (12.0-18.0); BG VENT MODE VENT - AC
[2021-04-06] MEDS ORDERED: FUROSEMIDE 100MG/10ML VIAL IVP SCH (09:00)
[2021-04-06 09:45] LABS: NUCLEATED RED BLOOD CELLS 1 /100 WBC; PLATELET ESTIMATE NORMAL
[2021-04-06] MEDS ORDERED: FERR-63 (12:21)
[2021-04-06] MEDS ORDERED: LOSA25TA26 MT (12:22)
[2021-04-06] MEDS ORDERED: DULO30CA52 MT (12:22)
[2021-04-06] MEDS: IPRATROPIUM/ALBUTEROL 0.5-3(2.5)MG/3ML NEB HHN SCH ×3 (12:34→20:26)
[2021-04-06 16:16] LABS: T4 FREE 1.43 ng/dL (0.76-1.46)
[2021-04-06] MEDS: FUROSEMIDE 40MG/4ML VIAL IVP SCH (17:30)
[2021-04-06] MEDS: ENOXAPARIN 150MG/ML SYR SUBCUT SCH (17:30)
[2021-04-06] MEDS: METHYLPREDNISOLONE SOD SUCC 40 MG/ML VIAL IV SCH (17:30)
[2021-04-06] MEDS: PANTOPRAZOLE SODIUM 40 MG/VIAL IV SCH (17:30)
[2021-04-06] MEDS: DULOXETINE HCL 30MG DR CAPSULE PO SCH (17:30)
[2021-04-06 19:50] LABS: FOLIC ACID (FOLATE) SERUM 4.6 ng/mL (>5.38)
[2021-04-06] MEDS ORDERED: DEXTROSE 50% WATER 50ML SYRINGE IV PRN (20:15)
[2021-04-06] MEDS: BLOOD SUGAR DIAGNOSTIC STRIP TEST SCH (23:46)
[2021-04-06] MEDS: INSULIN LISPRO 100 UNITS/ML SUBCUT SCH (23:46)
[2021-04-07] VITALS (86 sets, daily range): BP systolic 83–150; BP diastolic 51–108
[2021-04-07] MEDS: IPRATROPIUM/ALBUTEROL 0.5-3(2.5)MG/3ML NEB HHN SCH ×6 (00:25→20:46)
[2021-04-07] MEDS: PROPOFOL 10MG/ML 100ML 100 ML IV PRN ×3 (02:00→09:00)
[2021-04-07 05:31] LABS: HEMATOCRIT. 30.2 % (36.0-48.0); HEMOGLOBIN. 9.1 g/dL (12.0-16.0); MEAN CORPUSCULAR HEMOGLOBIN 20.5 pg (28.0-32.0); MEAN CORPUSCULAR VOLUME 68.3 fL (81.0-99.0); MEAN PLATELET VOLUME 9.2 fl (7.4-10.4); PLATELET 214 x1000/uL (130-400); RED BLOOD CELL COUNT 4.43 mill/uL (4.2-5.4); RED CELL DISTRIBUTION WIDTH 22.9 % (11.6-14.6)
[2021-04-07] MEDS: INSULIN LISPRO 100 UNITS/ML SUBCUT SCH ×3 (06:00→18:00)
[2021-04-07] MEDS: BLOOD SUGAR DIAGNOSTIC STRIP TEST SCH ×3 (06:02→18:20)
[2021-04-07] MEDS: ENOXAPARIN 150MG/ML SYR SUBCUT SCH ×2 (06:23→18:21)
[2021-04-07 08:02] LABS: CHLORIDE 104 mEq/L (98-107)
[2021-04-07] MEDS: PANTOPRAZOLE SODIUM 40 MG/VIAL IV SCH (08:27)
[2021-04-07] MEDS: FUROSEMIDE 40MG/4ML VIAL IVP SCH ×2 (08:28→17:15)
[2021-04-07] MEDS: METHYLPREDNISOLONE SOD SUCC 40 MG/ML VIAL IV SCH ×2 (08:28→17:00)
[2021-04-07] MEDS: DULOXETINE HCL 30MG DR CAPSULE PO SCH (08:28)
[2021-04-07 10:23] LABS: BG BASE EXCESS 7.2 mmol/L (-2.0-2.0); BG CARBOXYHEMOGLOBIN 0.7 % (0.5-1.5); BG DEOXYHEMOGLOBIN 3.1 % (0.0-5.0); BG FRACTION INSPIRED OXYGEN 60; BG HCO3 ACT 30.5 mmol/L (22.0-26.0); BG METHEMOGLOBIN 0.2 % (0.0-1.5); BG OXYGEN SATURATION 96.9 % (92.0-98.5); BG PCO2 37.9 mmHg (35.0-45.0); BG PH 7.523 (7.350-7.450); BG PO2 93.4 mmHg (75.0-100.0); BG SAMPLE SITE RIGHT RADIAL; BG TOTAL HEMOGLOBIN 9.3 g/dL (12.0-18.0); BG VENT MODE VENT - AC
[2021-04-07] MEDS: IRON SUCROSE COMPLEX 100 MG/5 ML ML IV SCH (13:41)
[2021-04-07] MEDS: FOLIC ACID 1MG TABLET PO SCH (13:41)
[2021-04-07 14:28] LABS: BG BASE EXCESS 12.1 mmol/L (-2.0-2.0); BG CARBOXYHEMOGLOBIN 1.1 % (0.5-1.5); BG DEOXYHEMOGLOBIN 5.6 % (0.0-5.0); BG FRACTION INSPIRED OXYGEN 40; BG HCO3 ACT 37.3 mmol/L (22.0-26.0); BG METHEMOGLOBIN 0.7 % (0.0-1.5); BG OXYGEN SATURATION 94.3 % (92.0-98.5); BG OXYHEMOGLOBIN 92.6 % (94.0-97.0); BG PCO2 53.1 mmHg (35.0-45.0); BG PH 7.465 (7.350-7.450); BG PO2 74.4 mmHg (75.0-100.0); BG SAMPLE SITE CL; BG TOTAL HEMOGLOBIN 9.6 g/dL (12.0-18.0); BG TOTAL RESPIRATORY RATE 22 b/min; BG VENT MODE VENT - CPAP
[2021-04-07 15:18] LABS: NUCLEATED RED BLOOD CELLS 1 /100 WBC; PLATELET ESTIMATE NORMAL
[2021-04-07] MEDS: DILTIAZEM HCL 5MG/ML 5ML VIAL IV PRN (18:42)
[2021-04-08] VITALS (46 sets, daily range): BP systolic 97–139; BP diastolic 57–85
[2021-04-08] MEDS: IPRATROPIUM/ALBUTEROL 0.5-3(2.5)MG/3ML NEB HHN SCH ×6 (00:30→21:03)
[2021-04-08] MEDS: ENOXAPARIN 150MG/ML SYR SUBCUT SCH ×2 (05:24→17:11)
[2021-04-08] MEDS: DILTIAZEM HCL 30MG TABLET PO SCH ×4 (05:25→17:31)
[2021-04-08 05:41] LABS: HEMATOCRIT. 30.7 % (36.0-48.0); HEMOGLOBIN. 8.7 g/dL (12.0-16.0); MEAN CORPUSCULAR HEMOGLOBIN 19.9 pg (28.0-32.0); MEAN CORPUSCULAR VOLUME 70.2 fL (81.0-99.0); MEAN PLATELET VOLUME 9.6 fl (7.4-10.4); PLATELET 331 x1000/uL (130-400); RED BLOOD CELL COUNT 4.37 mill/uL (4.2-5.4); RED CELL DISTRIBUTION WIDTH 23.3 % (11.6-14.6)
[2021-04-08 05:47] LABS: CHLORIDE 101 mEq/L (98-107)
[2021-04-08] MEDS: INSULIN LISPRO 100 UNITS/ML SUBCUT SCH ×4 (06:00→17:09)
[2021-04-08] MEDS: BLOOD SUGAR DIAGNOSTIC STRIP TEST SCH ×4 (06:22→17:09)
[2021-04-08] MEDS: ACETAMINOPHEN 650MG/20.3ML UDC GT PRN ×2 (06:48→21:52)
[2021-04-08] MEDS: DILTIAZEM HCL 5MG/ML 5ML VIAL IV PRN (06:48)
[2021-04-08] MEDS: FUROSEMIDE 40MG/4ML VIAL IVP SCH ×2 (06:49→17:33)
[2021-04-08 08:36] LABS: BG BASE EXCESS 5.7 mmol/L (-2.0-2.0); BG CARBOXYHEMOGLOBIN 0.9 % (0.5-1.5); BG DEOXYHEMOGLOBIN 13.1 % (0.0-5.0); BG HCO3 ACT 33.4 mmol/L (22.0-26.0); BG METHEMOGLOBIN 0.3 % (0.0-1.5); BG OXYGEN SATURATION 86.7 % (92.0-98.5); BG OXYHEMOGLOBIN 85.7 % (94.0-97.0); BG PCO2 67.8 mmHg (35.0-45.0); BG PO2 60.3 mmHg (75.0-100.0); BG SAMPLE SITE RIGHT RADIAL; BG TOTAL HEMOGLOBIN 9.9 g/dL (12.0-18.0); BG VENT MODE COOL AEROSOL
[2021-04-08] MEDS ORDERED: FUROSEMIDE 20MG/2ML VIAL IVP SCH (09:00)
[2021-04-08] MEDS: METHYLPREDNISOLONE SOD SUCC 40 MG/ML VIAL IV SCH ×2 (09:05→21:51)
[2021-04-08] MEDS: FOLIC ACID 1MG TABLET PO SCH (09:05)
[2021-04-08] MEDS: PANTOPRAZOLE SODIUM 40 MG/VIAL IV SCH (09:05)
[2021-04-08] MEDS: DULOXETINE HCL 30MG DR CAPSULE PO SCH (09:05)
[2021-04-08 09:38] LABS: NUCLEATED RED BLOOD CELLS 1 /100 WBC; PLATELET ESTIMATE NORMAL
[2021-04-08] MEDS ORDERED: POTASSIUM CHLORIDE INJ 40 MEQ in DEXT 5% WATER 250 ML IV NR (10:00)
[2021-04-08] MEDS: IRON SUCROSE COMPLEX 100 MG/5 ML ML IV SCH (12:41)
[2021-04-08] MEDS: CARVEDILOL 3.125 MG TABLET PO SCH (21:51)
[2021-04-09] VITALS (35 sets, daily range): BP systolic 98–164; BP diastolic 53–102
[2021-04-09] MEDS: DILTIAZEM HCL 30MG TABLET PO SCH ×4 (00:05→17:42)
[2021-04-09] MEDS: IPRATROPIUM/ALBUTEROL 0.5-3(2.5)MG/3ML NEB HHN SCH ×6 (00:15→20:38)
[2021-04-09 05:47] LABS: HEMATOCRIT. 31.7 % (36.0-48.0); HEMOGLOBIN. 8.8 g/dL (12.0-16.0); MEAN CORPUSCULAR VOLUME 72.1 fL (81.0-99.0); MEAN PLATELET VOLUME 9.9 fl (7.4-10.4); PLATELET 293 x1000/uL (130-400)
[2021-04-09] MEDS: BLOOD SUGAR DIAGNOSTIC STRIP TEST SCH ×4 (05:48→18:59)
[2021-04-09] MEDS: ENOXAPARIN 150MG/ML SYR SUBCUT SCH ×2 (05:51→17:42)
[2021-04-09] MEDS: DILTIAZEM HCL 5MG/ML 5ML VIAL IV PRN (05:51)
[2021-04-09] MEDS: FUROSEMIDE 40MG/4ML VIAL IVP SCH ×2 (05:52→17:42)
[2021-04-09 05:53] LABS: PHOSPHORUS 4.5 mg/dL (2.5-4.9)
[2021-04-09] MEDS: INSULIN LISPRO 100 UNITS/ML SUBCUT SCH ×4 (06:00→18:00)
[2021-04-09 08:21] LABS: NUCLEATED RED BLOOD CELLS 6 /100 WBC
[2021-04-09 08:22] LABS: PLATELET ESTIMATE NORMAL
[2021-04-09] MEDS: CARVEDILOL 3.125 MG TABLET PO SCH (08:48)
[2021-04-09] MEDS: DULOXETINE HCL 30MG DR CAPSULE PO SCH (08:48)
[2021-04-09] MEDS: FOLIC ACID 1MG TABLET PO SCH (08:48)
[2021-04-09] MEDS: METHYLPREDNISOLONE SOD SUCC 40 MG/ML VIAL IV SCH ×2 (08:48→21:20)
[2021-04-09] MEDS: PANTOPRAZOLE SODIUM 40 MG/VIAL IV SCH (08:48)
[2021-04-09 09:44] LABS: BG BASE EXCESS 5.9 mmol/L (-2.0-2.0); BG DEOXYHEMOGLOBIN 12.8 % (0.0-5.0); BG FRACTION INSPIRED OXYGEN 30; BG HCO3 ACT 35.2 mmol/L (22.0-26.0); BG METHEMOGLOBIN 0.3 % (0.0-1.5); BG OXYHEMOGLOBIN 85.9 % (94.0-97.0); BG PCO2 84.5 mmHg (35.0-45.0); BG PH 7.237 (7.350-7.450); BG PO2 61.2 mmHg (75.0-100.0); BG SAMPLE SITE RIGHT RADIAL; BG TOTAL HEMOGLOBIN 9.8 g/dL (12.0-18.0); BG VENT MODE COOL AEROSOL
[2021-04-09] MEDS: IRON SUCROSE COMPLEX 100 MG/5 ML ML IV SCH (12:42)
[2021-04-09] MEDS ORDERED: LIDOCAINE HCL/PF 1% 2ML VIAL ONE (13:00)
[2021-04-09 13:25] LABS: BG BASE EXCESS 8.6 mmol/L (-2.0-2.0); BG CARBOXYHEMOGLOBIN 1.1 % (0.5-1.5); BG DEOXYHEMOGLOBIN 4.7 % (0.0-5.0); BG FRACTION INSPIRED OXYGEN 40; BG HCO3 ACT 36.4 mmol/L (22.0-26.0); BG METHEMOGLOBIN 0.3 % (0.0-1.5); BG OXYGEN SATURATION 95.2 % (92.0-98.5); BG OXYHEMOGLOBIN 93.9 % (94.0-97.0); BG PCO2 71.8 mmHg (35.0-45.0); BG PH 7.323 (7.350-7.450); BG PO2 78.9 mmHg (75.0-100.0); BG SAMPLE SITE RIGHT RADIAL; BG TOTAL HEMOGLOBIN 9.5 g/dL (12.0-18.0); BG VENT MODE MASK - BIPAP
[2021-04-09] MEDS: LOSARTAN POTASSIUM 25 MG TABLET PO SCH (15:24)
[2021-04-09] MEDS: CEFEPIME 2,000 MG in DEXT 5% WATER 100 ML IV SCH (15:25)
[2021-04-10] VITALS (41 sets, daily range): BP systolic 97–137; BP diastolic 50–96
[2021-04-10] MEDS: IPRATROPIUM/ALBUTEROL 0.5-3(2.5)MG/3ML NEB HHN SCH ×6 (00:22→21:05)
[2021-04-10] MEDS: CEFEPIME 2,000 MG in DEXT 5% WATER 100 ML IV SCH ×3 (00:36→23:44)
[2021-04-10] MEDS: DILTIAZEM HCL 30MG TABLET PO SCH ×5 (00:38→23:45)
[2021-04-10] MEDS: CARVEDILOL 3.125 MG TABLET PO SCH ×3 (00:39→21:31)
[2021-04-10] MEDS ORDERED: LIDOCAINE HCL/PF 1% 2ML VIAL ONE (05:00)
[2021-04-10] MEDS: BLOOD SUGAR DIAGNOSTIC STRIP TEST SCH ×5 (06:00→23:46)
[2021-04-10] MEDS: INSULIN LISPRO 100 UNITS/ML SUBCUT SCH ×5 (06:00→23:45)
[2021-04-10 06:05] LABS: BASOPHILS % 0.1 % (0.0-2.0); EOSINOPHILS % 0.1 % (0.0-5.0); HEMATOCRIT. 28.5 % (36.0-48.0); LYMPHOCYTES % 9.1 % (20.0-50.0); MEAN CORPUSCULAR VOLUME 71.1 fL (81.0-99.0); MEAN PLATELET VOLUME 9.8 fl (7.4-10.4); MONOCYTES % 8.3 % (2.0-8.0); NEUTROPHILS % 82.4 % (40.0-76.0); PLATELET 287 x1000/uL (130-400); RED BLOOD CELL COUNT 4.01 mill/uL (4.2-5.4); RED CELL DISTRIBUTION WIDTH 23.3 % (11.6-14.6)
[2021-04-10 06:14] LABS: CHLORIDE 104 mEq/L (98-107)
[2021-04-10] MEDS: FUROSEMIDE 40MG/4ML VIAL IVP SCH ×2 (06:40→17:51)
[2021-04-10] MEDS: ENOXAPARIN 150MG/ML SYR SUBCUT SCH ×2 (07:08→17:52)
[2021-04-10 08:20] LABS: BG BASE EXCESS 11.6 mmol/L (-2.0-2.0); BG CARBOXYHEMOGLOBIN 0.7 % (0.5-1.5); BG DEOXYHEMOGLOBIN 10.9 % (0.0-5.0); BG HCO3 ACT 38.1 mmol/L (22.0-26.0); BG METHEMOGLOBIN 0.2 % (0.0-1.5); BG OXYHEMOGLOBIN 88.2 % (94.0-97.0); BG PCO2 62.6 mmHg (35.0-45.0); BG PH 7.402 (7.350-7.450); BG PO2 58.1 mmHg (75.0-100.0); BG SAMPLE SITE RIGHT RADIAL; BG TOTAL HEMOGLOBIN 9.3 g/dL (12.0-18.0); BG VENT MODE MASK - BIPAP
[2021-04-10] MEDS: DULOXETINE HCL 30MG DR CAPSULE PO SCH (10:12)
[2021-04-10] MEDS: METHYLPREDNISOLONE SOD SUCC 40 MG/ML VIAL IV SCH ×2 (10:12→21:31)
[2021-04-10] MEDS: FOLIC ACID 1MG TABLET PO SCH (10:12)
[2021-04-10] MEDS: LOSARTAN POTASSIUM 25 MG TABLET PO SCH (10:12)
[2021-04-10] MEDS: PANTOPRAZOLE SODIUM 40 MG/VIAL IV SCH (10:12)
[2021-04-10] MEDS: ACETAMINOPHEN 650MG/20.3ML UDC GT PRN (21:33)
[2021-04-11] VITALS (56 sets, daily range): BP systolic 98–178; BP diastolic 48–105
[2021-04-11] MEDS: IPRATROPIUM/ALBUTEROL 0.5-3(2.5)MG/3ML NEB HHN SCH ×6 (00:55→20:19)
[2021-04-11 05:19] LABS: CHLORIDE 102 mEq/L (98-107)
[2021-04-11 05:22] LABS: HEMATOCRIT. 30.4 % (36.0-48.0); HEMOGLOBIN. 8.5 g/dL (12.0-16.0); MEAN CORPUSCULAR HEMOGLOBIN 19.9 pg (28.0-32.0); MEAN CORPUSCULAR VOLUME 70.9 fL (81.0-99.0); MEAN PLATELET VOLUME 9.6 fl (7.4-10.4); PLATELET 262 x1000/uL (130-400); RED BLOOD CELL COUNT 4.29 mill/uL (4.2-5.4); RED CELL DISTRIBUTION WIDTH 23.3 % (11.6-14.6)
[2021-04-11] MEDS: DILTIAZEM HCL 30MG TABLET PO SCH ×4 (05:41→23:01)
[2021-04-11] MEDS: ENOXAPARIN 150MG/ML SYR SUBCUT SCH ×2 (05:41→18:26)
[2021-04-11] MEDS: INSULIN LISPRO 100 UNITS/ML SUBCUT SCH ×3 (06:00→18:27)
[2021-04-11] MEDS: BLOOD SUGAR DIAGNOSTIC STRIP TEST SCH ×3 (06:57→17:43)
[2021-04-11] MEDS: FUROSEMIDE 40MG/4ML VIAL IVP SCH ×2 (06:59→17:43)
[2021-04-11 08:15] LABS: BG BASE EXCESS 11.6 mmol/L (-2.0-2.0); BG CARBOXYHEMOGLOBIN 0.4 % (0.5-1.5); BG DEOXYHEMOGLOBIN 4.2 % (0.0-5.0); BG HCO3 ACT 37.3 mmol/L (22.0-26.0); BG METHEMOGLOBIN 0.2 % (0.0-1.5); BG OXYGEN SATURATION 95.8 % (92.0-98.5); BG OXYHEMOGLOBIN 95.2 % (94.0-97.0); BG PCO2 55.5 mmHg (35.0-45.0); BG PH 7.445 (7.350-7.450); BG PO2 81.4 mmHg (75.0-100.0); BG SAMPLE SITE RIGHT RADIAL; BG TOTAL HEMOGLOBIN 10.2 g/dL (12.0-18.0); BG VENT MODE MASK - BIPAP
[2021-04-11] MEDS: PANTOPRAZOLE SODIUM 40 MG/VIAL IV SCH (08:55)
[2021-04-11] MEDS: METHYLPREDNISOLONE SOD SUCC 40 MG/ML VIAL IV SCH ×2 (08:55→20:45)
[2021-04-11] MEDS: CARVEDILOL 3.125 MG TABLET PO SCH ×2 (08:56→20:46)
[2021-04-11] MEDS: DULOXETINE HCL 30MG DR CAPSULE PO SCH (08:57)
[2021-04-11] MEDS: LOSARTAN POTASSIUM 25 MG TABLET PO SCH (08:57)
[2021-04-11] MEDS: FOLIC ACID 1MG TABLET PO SCH (08:57)
[2021-04-11] MEDS: DILTIAZEM HCL 5MG/ML 5ML VIAL IV PRN (10:24)
[2021-04-11 10:39] LABS: NUCLEATED RED BLOOD CELLS 1 /100 WBC
[2021-04-11 10:41] LABS: PLATELET ESTIMATE NORMAL
[2021-04-11] MEDS: CEFEPIME 2,000 MG in DEXT 5% WATER 100 ML IV SCH ×2 (13:21→23:00)
[2021-04-11] MEDS: ACETAMINOPHEN 650MG/20.3ML UDC GT PRN ×2 (17:42→20:46)
[2021-04-12] VITALS (40 sets, daily range): BP systolic 90–135; BP diastolic 43–99
[2021-04-12] MEDS: IPRATROPIUM/ALBUTEROL 0.5-3(2.5)MG/3ML NEB HHN SCH ×6 (00:09→20:38)
[2021-04-12 05:41] LABS: CHLORIDE 102 mEq/L (98-107)
[2021-04-12] MEDS: ENOXAPARIN 150MG/ML SYR SUBCUT SCH ×2 (05:41→18:02)
[2021-04-12] MEDS: DILTIAZEM HCL 30MG TABLET PO SCH ×4 (05:41→23:11)
[2021-04-12] MEDS: FUROSEMIDE 40MG/4ML VIAL IVP SCH ×2 (05:42→18:02)
[2021-04-12] MEDS: BLOOD SUGAR DIAGNOSTIC STRIP TEST SCH ×5 (05:44→23:11)
[2021-04-12] MEDS: INSULIN LISPRO 100 UNITS/ML SUBCUT SCH ×6 (06:00→23:37)
[2021-04-12] MEDS: PANTOPRAZOLE SODIUM 40 MG/VIAL IV SCH (08:35)
[2021-04-12] MEDS: METHYLPREDNISOLONE SOD SUCC 40 MG/ML VIAL IV SCH ×2 (08:35→20:57)
[2021-04-12] MEDS: CARVEDILOL 3.125 MG TABLET PO SCH (08:36)
[2021-04-12] MEDS: FOLIC ACID 1MG TABLET PO SCH (08:36)
[2021-04-12] MEDS: DULOXETINE HCL 30MG DR CAPSULE PO SCH (08:36)
[2021-04-12] MEDS: LOSARTAN POTASSIUM 25 MG TABLET PO SCH (08:36)
[2021-04-12 09:26] LABS: HEMATOCRIT. 30.8 % (36.0-48.0); HEMOGLOBIN. 8.7 g/dL (12.0-16.0); MEAN CORPUSCULAR HEMOGLOBIN 20.8 pg (28.0-32.0); MEAN PLATELET VOLUME 9.1 fl (7.4-10.4); PLATELET 210 x1000/uL (130-400); RED BLOOD CELL COUNT 4.16 mill/uL (4.2-5.4); RED CELL DISTRIBUTION WIDTH 22.8 % (11.6-14.6)
[2021-04-12 10:33] LABS: PLATELET ESTIMATE NORMAL
[2021-04-12] MEDS: GUAIFENESIN 600MG ER TABLET PO SCH ×2 (12:20→20:56)
[2021-04-12] MEDS: CEFEPIME 2,000 MG in DEXT 5% WATER 100 ML IV SCH ×2 (12:34→23:36)
[2021-04-12] MEDS: CARVEDILOL 6.25 MG TABLET PO SCH (20:56)
[2021-04-12] MEDS: LORAZEPAM 0.5MG TABLET PO PRN (23:36)
[2021-04-13] VITALS (12 sets, daily range): BP systolic 83–123; BP diastolic 34–77
[2021-04-13] MEDS: IPRATROPIUM/ALBUTEROL 0.5-3(2.5)MG/3ML NEB HHN SCH ×6 (00:20→20:52)
[2021-04-13] MEDS: BLOOD SUGAR DIAGNOSTIC STRIP TEST SCH ×3 (05:01→18:04)
[2021-04-13] MEDS: DILTIAZEM HCL 30MG TABLET PO SCH ×3 (05:01→18:00)
[2021-04-13] MEDS: ENOXAPARIN 150MG/ML SYR SUBCUT SCH ×2 (05:05→18:15)
[2021-04-13] MEDS: INSULIN LISPRO 100 UNITS/ML SUBCUT SCH ×3 (05:07→18:10)
[2021-04-13 05:34] LABS: CHLORIDE 98 mEq/L (98-107)
[2021-04-13 06:22] LABS: HEMATOCRIT. 31.4 % (36.0-48.0); HEMOGLOBIN. 8.8 g/dL (12.0-16.0); MEAN CORPUSCULAR HEMOGLOBIN 20.5 pg (28.0-32.0); MEAN CORPUSCULAR VOLUME 73.3 fL (81.0-99.0); MEAN PLATELET VOLUME 9.3 fl (7.4-10.4); PLATELET 208 x1000/uL (130-400); RED BLOOD CELL COUNT 4.29 mill/uL (4.2-5.4); RED CELL DISTRIBUTION WIDTH 23.1 % (11.6-14.6)
[2021-04-13] MEDS: FUROSEMIDE 40MG/4ML VIAL IVP SCH ×2 (07:58→18:10)
[2021-04-13 08:12] LABS: BG BASE EXCESS 8.8 mmol/L (-2.0-2.0); BG CARBOXYHEMOGLOBIN 0.6 % (0.5-1.5); BG DEOXYHEMOGLOBIN 5.9 % (0.0-5.0); BG HCO3 ACT 35.6 mmol/L (22.0-26.0); BG METHEMOGLOBIN 0.4 % (0.0-1.5); BG OXYHEMOGLOBIN 93.1 % (94.0-97.0); BG PCO2 62.5 mmHg (35.0-45.0); BG PH 7.374 (7.350-7.450); BG PO2 75.1 mmHg (75.0-100.0); BG SAMPLE SITE RIGHT RADIAL; BG TOTAL HEMOGLOBIN 10.3 g/dL (12.0-18.0); BG VENT MODE NASAL CANNULA
[2021-04-13] MEDS: METHYLPREDNISOLONE SOD SUCC 40 MG/ML VIAL IV SCH ×2 (08:37→20:12)
[2021-04-13] MEDS: FOLIC ACID 1MG TABLET PO SCH (08:37)
[2021-04-13] MEDS: CARVEDILOL 6.25 MG TABLET PO SCH ×2 (08:37→20:11)
[2021-04-13] MEDS: PANTOPRAZOLE SODIUM 40 MG/VIAL IV SCH (08:37)
[2021-04-13] MEDS: DULOXETINE HCL 30MG DR CAPSULE PO SCH (08:38)
[2021-04-13] MEDS: LOSARTAN POTASSIUM 25 MG TABLET PO SCH (08:38)
[2021-04-13] MEDS: GUAIFENESIN 600MG ER TABLET PO SCH ×2 (09:11→20:11)
[2021-04-13] MEDS: POLYETHYLENE GLYCOL 3350 (17GM) 1 DOSE PACK PO SCH (10:59)
[2021-04-13] MEDS: CEFEPIME 2,000 MG in DEXT 5% WATER 100 ML IV SCH ×2 (12:03→23:58)
[2021-04-13 13:35] LABS: PLATELET ESTIMATE NORMAL
[2021-04-13] MEDS: LORAZEPAM 0.5MG TABLET PO PRN (14:36)
[2021-04-14] VITALS (12 sets, daily range): BP systolic 98–140; BP diastolic 46–82
[2021-04-14] MEDS: IPRATROPIUM/ALBUTEROL 0.5-3(2.5)MG/3ML NEB HHN SCH ×5 (00:13→20:08)
[2021-04-14 05:16] LABS: HEMOGLOBIN. 8.4 g/dL (12.0-16.0); MEAN CORPUSCULAR HEMOGLOBIN 21.2 pg (28.0-32.0); MEAN CORPUSCULAR VOLUME 73.2 fL (81.0-99.0); MEAN PLATELET VOLUME 9.2 fl (7.4-10.4); PLATELET 165 x1000/uL (130-400); RED BLOOD CELL COUNT 3.96 mill/uL (4.2-5.4); RED CELL DISTRIBUTION WIDTH 22.6 % (11.6-14.6)
[2021-04-14] MEDS: ENOXAPARIN 150MG/ML SYR SUBCUT SCH ×2 (05:19→18:29)
[2021-04-14] MEDS: DILTIAZEM HCL 30MG TABLET PO SCH ×4 (05:20→18:29)
[2021-04-14] MEDS: BLOOD SUGAR DIAGNOSTIC STRIP TEST SCH ×4 (05:20→18:31)
[2021-04-14] MEDS: INSULIN LISPRO 100 UNITS/ML SUBCUT SCH ×4 (05:21→18:31)
[2021-04-14 05:25] LABS: CHLORIDE 97 mEq/L (98-107)
[2021-04-14] MEDS: FUROSEMIDE 40MG/4ML VIAL IVP SCH ×2 (07:48→18:29)
[2021-04-14] MEDS: PANTOPRAZOLE SODIUM 40 MG/VIAL IV SCH (09:05)
[2021-04-14] MEDS: METHYLPREDNISOLONE SOD SUCC 40 MG/ML VIAL IV SCH ×2 (09:05→20:51)
[2021-04-14] MEDS: FOLIC ACID 1MG TABLET PO SCH (09:05)
[2021-04-14] MEDS: DULOXETINE HCL 30MG DR CAPSULE PO SCH (09:05)
[2021-04-14] MEDS: GUAIFENESIN 600MG ER TABLET PO SCH ×2 (09:05→20:51)
[2021-04-14] MEDS: CARVEDILOL 6.25 MG TABLET PO SCH ×2 (09:08→20:55)
[2021-04-14] MEDS: POLYETHYLENE GLYCOL 3350 (17GM) 1 DOSE PACK PO SCH (09:08)
[2021-04-14] MEDS: LOSARTAN POTASSIUM 25 MG TABLET PO SCH (09:08)
[2021-04-14] MEDS: CEFEPIME 2,000 MG in DEXT 5% WATER 100 ML IV SCH (13:00)
[2021-04-14 14:00] LABS: PLATELET ESTIMATE NORMAL
[2021-04-14] MEDS: LORAZEPAM 0.5MG TABLET PO PRN (18:30)
[2021-04-15] VITALS (8 sets, daily range): BP systolic 107–151; BP diastolic 60–86
[2021-04-15] MEDS: DILTIAZEM HCL 30MG TABLET PO SCH ×4 (00:07→19:05)
[2021-04-15] MEDS: INSULIN LISPRO 100 UNITS/ML SUBCUT SCH ×4 (00:07→18:00)
[2021-04-15] MEDS: BLOOD SUGAR DIAGNOSTIC STRIP TEST SCH ×4 (00:08→18:38)
[2021-04-15] MEDS: IPRATROPIUM/ALBUTEROL 0.5-3(2.5)MG/3ML NEB HHN SCH ×6 (00:44→20:54)
[2021-04-15] MEDS: LORAZEPAM 0.5MG TABLET PO PRN (03:41)
[2021-04-15] MEDS: ENOXAPARIN 150MG/ML SYR SUBCUT SCH (05:52)
[2021-04-15 07:16] LABS: HEMOGLOBIN. 8.2 g/dL (12.0-16.0); MEAN CORPUSCULAR HEMOGLOBIN 20.9 pg (28.0-32.0); MEAN CORPUSCULAR VOLUME 73.5 fL (81.0-99.0); MEAN PLATELET VOLUME 9.1 fl (7.4-10.4); PLATELET 165 x1000/uL (130-400); RED BLOOD CELL COUNT 3.94 mill/uL (4.2-5.4); RED CELL DISTRIBUTION WIDTH 22.6 % (11.6-14.6)
[2021-04-15 07:27] LABS: CHLORIDE 95 mEq/L (98-107)
[2021-04-15] MEDS: METHYLPREDNISOLONE SOD SUCC 40 MG/ML VIAL IV SCH (08:12)
[2021-04-15] MEDS: FUROSEMIDE 40MG/4ML VIAL IVP SCH ×2 (08:12→18:47)
[2021-04-15] MEDS: DULOXETINE HCL 30MG DR CAPSULE PO SCH (08:13)
[2021-04-15] MEDS: PANTOPRAZOLE SODIUM 40 MG/VIAL IV SCH (08:13)
[2021-04-15] MEDS: LOSARTAN POTASSIUM 25 MG TABLET PO SCH (08:13)
[2021-04-15] MEDS: GUAIFENESIN 600MG ER TABLET PO SCH ×2 (08:13→21:16)
[2021-04-15] MEDS: CARVEDILOL 6.25 MG TABLET PO SCH ×2 (08:14→21:16)
[2021-04-15] MEDS: FOLIC ACID 1MG TABLET PO SCH (08:14)
[2021-04-15] MEDS: POLYETHYLENE GLYCOL 3350 (17GM) 1 DOSE PACK PO SCH (08:38)
[2021-04-15] MEDS ORDERED: LORAZEPAM 1MG TABLET PO PRN (10:45)
[2021-04-15 13:55] LABS: PLATELET ESTIMATE NORMAL
[2021-04-16] VITALS (11 sets, daily range): BP systolic 95–137; BP diastolic 50–90
[2021-04-16] MEDS: IPRATROPIUM/ALBUTEROL 0.5-3(2.5)MG/3ML NEB HHN SCH ×4 (00:31→20:00)
[2021-04-16] MEDS: LORAZEPAM 2MG/ML CPJ IV PRN ×3 (04:35→20:33)
[2021-04-16] MEDS: DILTIAZEM HCL 30MG TABLET PO SCH ×5 (05:07→23:42)
[2021-04-16] MEDS: BLOOD SUGAR DIAGNOSTIC STRIP TEST SCH ×5 (05:07→23:42)
[2021-04-16] MEDS: ENOXAPARIN 150MG/ML SYR SUBCUT SCH ×3 (05:12→18:00)
[2021-04-16] MEDS: INSULIN LISPRO 100 UNITS/ML SUBCUT SCH ×5 (05:12→23:45)
[2021-04-16] MEDS: PANTOPRAZOLE SODIUM 40 MG/VIAL IV SCH (08:09)
[2021-04-16] MEDS: DULOXETINE HCL 30MG DR CAPSULE PO SCH ×2 (08:10→08:32)
[2021-04-16] MEDS: FUROSEMIDE 40MG/4ML VIAL IVP SCH ×2 (08:10→18:11)
[2021-04-16] MEDS: FOLIC ACID 1MG TABLET PO SCH ×2 (08:14→08:32)
[2021-04-16] MEDS: LOSARTAN POTASSIUM 25 MG TABLET PO SCH ×2 (08:14→08:31)
[2021-04-16] MEDS: CARVEDILOL 6.25 MG TABLET PO SCH ×3 (08:14→20:32)
[2021-04-16] MEDS: POLYETHYLENE GLYCOL 3350 (17GM) 1 DOSE PACK PO SCH ×2 (08:32→08:46)
[2021-04-16 08:51] LABS: HEMATOCRIT. 30.6 % (36.0-48.0); HEMOGLOBIN. 8.4 g/dL (12.0-16.0); MEAN CORPUSCULAR HEMOGLOBIN 21.4 pg (28.0-32.0); MEAN CORPUSCULAR VOLUME 77.4 fL (81.0-99.0); PLATELET 154 x1000/uL (130-400); RED BLOOD CELL COUNT 3.96 mill/uL (4.2-5.4); RED CELL DISTRIBUTION WIDTH 22.8 % (11.6-14.6)
[2021-04-16 08:59] LABS: CHLORIDE 100 mEq/L (98-107)
[2021-04-16] MEDS ORDERED: METHYLPREDNISOLONE SOD SUCC 40 MG/ML VIAL IV SCH (09:00)
[2021-04-16] MEDS: GUAIFENESIN 600MG ER TABLET PO SCH ×2 (09:00→20:32)
[2021-04-16 15:26] LABS: PLATELET ESTIMATE NORMAL
[2021-04-17] VITALS (12 sets, daily range): BP systolic 93–134; BP diastolic 43–85
[2021-04-17] MEDS: IPRATROPIUM/ALBUTEROL 0.5-3(2.5)MG/3ML NEB HHN SCH ×4 (04:00→20:36)
[2021-04-17] MEDS: INSULIN LISPRO 100 UNITS/ML SUBCUT SCH ×4 (06:00→23:16)
[2021-04-17] MEDS: DILTIAZEM HCL 30MG TABLET PO SCH ×4 (06:00→23:16)
[2021-04-17] MEDS: ENOXAPARIN 150MG/ML SYR SUBCUT SCH ×2 (06:00→18:00)
[2021-04-17] MEDS: BLOOD SUGAR DIAGNOSTIC STRIP TEST SCH ×4 (06:33→23:16)
[2021-04-17] MEDS: FOLIC ACID 1MG TABLET PO SCH (08:02)
[2021-04-17] MEDS: POLYETHYLENE GLYCOL 3350 (17GM) 1 DOSE PACK PO SCH (08:02)
[2021-04-17] MEDS: PANTOPRAZOLE SODIUM 40 MG/VIAL IV SCH (08:02)
[2021-04-17] MEDS: LOSARTAN POTASSIUM 25 MG TABLET PO SCH (08:02)
[2021-04-17] MEDS: CARVEDILOL 6.25 MG TABLET PO SCH ×2 (08:02→21:00)
[2021-04-17] MEDS: FUROSEMIDE 40MG/4ML VIAL IVP SCH ×2 (08:02→18:26)
[2021-04-17] MEDS: GUAIFENESIN 600MG ER TABLET PO SCH ×2 (08:02→21:00)
[2021-04-17] MEDS: DULOXETINE HCL 30MG DR CAPSULE PO SCH (08:03)
[2021-04-17] MEDS: PREDNISONE 10MG TABLET PO SCH (08:03)
[2021-04-17 08:39] LABS: CHLORIDE 97 mEq/L (98-107)
[2021-04-17 09:08] LABS: HEMATOCRIT. 29.9 % (36.0-48.0); HEMOGLOBIN. 8.5 g/dL (12.0-16.0); MEAN CORPUSCULAR HEMOGLOBIN 21.8 pg (28.0-32.0); MEAN CORPUSCULAR VOLUME 76.4 fL (81.0-99.0); MEAN PLATELET VOLUME 9.6 fl (7.4-10.4); PLATELET 144 x1000/uL (130-400); RED BLOOD CELL COUNT 3.91 mill/uL (4.2-5.4); RED CELL DISTRIBUTION WIDTH 22.7 % (11.6-14.6)
[2021-04-17] MEDS: LORAZEPAM 2MG/ML CPJ IV PRN ×2 (11:05→23:45)
[2021-04-17] MEDS ORDERED: FOLI-43 MT (12:56)
[2021-04-17] MEDS ORDERED: GUAI600T44 PO (12:56)
[2021-04-17] MEDS ORDERED: PRED10TA PO (12:56)
[2021-04-17] MEDS ORDERED: DILT30TA38 PO (12:56)
[2021-04-17] MEDS ORDERED: FURO40TA5 MT (12:56)
[2021-04-17] MEDS ORDERED: POLY17PO3 PO (12:56)
[2021-04-17 13:09] LABS: NUCLEATED RED BLOOD CELLS 1 /100 WBC; PLATELET ESTIMATE NORMAL
[2021-04-18] VITALS (11 sets, daily range): BP systolic 101–140; BP diastolic 51–97
[2021-04-18] MEDS: IPRATROPIUM/ALBUTEROL 0.5-3(2.5)MG/3ML NEB HHN SCH ×5 (00:13→16:44)
[2021-04-18] MEDS: ENOXAPARIN 150MG/ML SYR SUBCUT SCH (05:19)
[2021-04-18] MEDS: INSULIN LISPRO 100 UNITS/ML SUBCUT SCH ×3 (05:19→17:03)
[2021-04-18] MEDS: DILTIAZEM HCL 30MG TABLET PO SCH ×2 (05:19→12:28)
[2021-04-18] MEDS: BLOOD SUGAR DIAGNOSTIC STRIP TEST SCH ×3 (05:20→17:02)
[2021-04-18] MEDS: PREDNISONE 10MG TABLET PO SCH (08:12)
[2021-04-18] MEDS: LOSARTAN POTASSIUM 25 MG TABLET PO SCH (08:12)
[2021-04-18] MEDS: GUAIFENESIN 600MG ER TABLET PO SCH (08:12)
[2021-04-18] MEDS: CARVEDILOL 6.25 MG TABLET PO SCH (08:12)
[2021-04-18] MEDS: FOLIC ACID 1MG TABLET PO SCH (08:12)
[2021-04-18] MEDS: POLYETHYLENE GLYCOL 3350 (17GM) 1 DOSE PACK PO SCH (08:13)
[2021-04-18] MEDS: FUROSEMIDE 40MG/4ML VIAL IVP SCH ×2 (08:13→16:57)
[2021-04-18] MEDS: DULOXETINE HCL 30MG DR CAPSULE PO SCH (08:13)
[2021-04-18] MEDS: PANTOPRAZOLE SODIUM 40 MG/VIAL IV SCH (08:13)
[2021-04-18] MEDS ORDERED: DILTIAZEM HCL 120MG CAPSULE CD 24HR PO SCH (13:00)
[2021-04-18] MEDS ORDERED: APIXABAN 5 MG TABLET PO SCH (17:00)
== END 2021-04-18 20:30 | disposition home health service (06) | DRG 208 ==
LOC: ER 15:53 → EDBEDREQTM 18:40 → EDBEDREQ 18:40 → MICUSO 04-06 02:46 → UNDOADMIN 04-06 02:46 → MICUNO 04-06 10:14 → 5EST 04-12 16:50
PROVIDERS: ADMIT Internal Medicine; ATTEND Internal Medicine
PROC: 5A1945Z Respiratory Ventilation, 24-96 Consecutive Hours (ICD-10-PCS; principal; 2021-04-05)
PROC: 02HV33Z Insertion of Infusion Device into Superior Vena Cava, Percutaneous Approach (ICD-10-PCS; 2021-04-05)
PROC: 5A09357 Assistance with Respiratory Ventilation, Less than 24 Consecutive Hours, Continuous Positive Airway Pressure (ICD-10-PCS; 2021-04-05)
PROC: 0BH17EZ Insertion of Endotracheal Airway into Trachea, Via Natural or Artificial Opening (ICD-10-PCS; 2021-04-05)
PROC: 5A09357 Assistance with Respiratory Ventilation, Less than 24 Consecutive Hours, Continuous Positive Airway Pressure (ICD-10-PCS; 2021-04-08)
PROC: 5A09557 Assistance with Respiratory Ventilation, Greater than 96 Consecutive Hours, Continuous Positive Airway Pressure (ICD-10-PCS; 2021-04-09)
DX: J96.22 Acute and chronic respiratory failure with hypercapnia (principal); I50.43 Acute on chronic combined systolic (congestive) and diastolic (congestive) heart failure; G93.40 Encephalopathy, unspecified; E66.2 Morbid (severe) obesity with alveolar hypoventilation; Z68.44 Body mass index [BMI] 60.0-69.9, adult; I48.20 Chronic atrial fibrillation, unspecified; I48.92 Unspecified atrial flutter; I42.9 Cardiomyopathy, unspecified; I11.0 Hypertensive heart disease with heart failure; I87.8 Other specified disorders of veins; E87.6 Hypokalemia; E78.5 Hyperlipidemia, unspecified; D50.9 Iron deficiency anemia, unspecified; E11.9 Type 2 diabetes mellitus without complications; I27.20 Pulmonary hypertension, unspecified; J44.9 Chronic obstructive pulmonary disease, unspecified; D72.825 Bandemia; R79.89 Other specified abnormal findings of blood chemistry; E53.8 Deficiency of other specified B group vitamins; I34.0 Nonrheumatic mitral (valve) insufficiency; I36.1 Nonrheumatic tricuspid (valve) insufficiency; Z20.822 Contact with and (suspected) exposure to COVID-19; Z88.0 Allergy status to penicillin; Z79.84 Long term (current) use of oral hypoglycemic drugs; Z79.899 Other long term (current) drug therapy; Z99.81 Dependence on supplemental oxygen; Z78.1 Physical restraint status; N93.9 Abnormal uterine and vaginal bleeding, unspecified
CPT/HCPCS: 36415; 36600; 71045; 76856; 80048; 80053; 80305; 81003; 82375; 82607; 82728; 82746; 82805; 82962; 83540; 83550; 83605; 83735; 83880; 84100; 84145; 84439; 84478; 84481; 84484; 85025; 86850; 86900; 87426; 93005; 93306; 94002; 94003; 94640; 94660; 97162; 99291; A6261; C9113; C9803; J0692; J1650; J1815; J1940; J1956; J2060; J2704; J2920; J2930; J3370; J3480; J3490; J7040; J7060; J7512; U0003; U0005

== ENCOUNTER 2021-04-19 21:10 | Inpatient (IN) | payer OTHER, MEDICAID ==
[~2021-04-19] VITALS: Ht 180.3 cm; Wt 225.9 kg
[~2021-04-19 21:10] MED LIST changes: -AMI2 PO; -ASPI-1406 PO; -ATOR40TA70 MT; -ATROV INH; -CARV3.1242 PO; -CEPH-569 MT; -DIGO-26 PO; +DILT30TA38 PO; +DULO30CA52 MT; -ETOMIDATE 2MG/ML 10ML VIAL IV ONE; +FERR-63; -FLUT1BLS8 IH; -FLUT1DIS3 INH; +FOLI-43 MT; -FURO-151 MT; +FURO40TA5 MT; -GUAI-740 MT; +GUAI600T44 PO; -LORA10TA7 PO; +LOSA25TA26 MT; -MYCOC15 TP; +POLY17PO3 PO; -POTA20TA82 MT; +PRED10TA PO; -SODIUM CHLORIDE 0.9% 10ML VIAL ONE; -TC1U15 TP; -VECURONIUM BROMIDE 10 MG/VIAL IV ONE
[2021-04-19 21:58] LABS: HEMATOCRIT. 30.5 % (36.0-48.0); HEMOGLOBIN. 8.8 g/dL (12.0-16.0); MEAN CORPUSCULAR HEMOGLOBIN 21.9 pg (28.0-32.0); MEAN CORPUSCULAR VOLUME 76.3 fL (81.0-99.0); MEAN PLATELET VOLUME 9.5 fl (7.4-10.4); PLATELET 177 x1000/uL (130-400); RED CELL DISTRIBUTION WIDTH 23.1 % (11.6-14.6)
[2021-04-19 22:04] LABS: CHLORIDE 97 mEq/L (98-107)
[2021-04-19 22:08] LABS: INR 1.2; PROTHROMBIN TIME 13.1 sec (9.6-11.0)
[2021-04-19 22:16] LABS: PLATELET ESTIMATE NORMAL
[2021-04-19 23:01] LABS: CLARITY URINE CLEAR (CLEAR); COLOR URINE DARK YELLOW (YELLOW); KETONES URINE NEGATIVE (NEGATIVE); LEUKOCYTE ESTERASE URINE TRACE (NEGATIVE); NITRITE URINE NEGATIVE (NEGATIVE); OCCULT BLOOD URINE NEGATIVE (NEGATIVE); PH URINE >=9.0 (4.5-8.0); PROTEIN URINE 1+ (NEGATIVE); SPECIFIC GRAVITY URINE 1.017 (1.005-1.030)
[2021-04-20 07:37] VITALS: BP 124/76
[2021-04-20 08:00] VITALS: BP 114/71
[2021-04-20] MEDS: APIXABAN 5 MG TABLET PO SCH ×2 (11:27→17:51)
[2021-04-20] MEDS: FUROSEMIDE 40MG TABLET PO SCH (11:27)
[2021-04-20] MEDS: FOLIC ACID 1MG TABLET PO SCH (11:27)
[2021-04-20 12:00] VITALS: BP 110/67
[2021-04-20 12:13] LABS: BG BASE EXCESS 16.8 mmol/L (-2.0-2.0); BG CARBOXYHEMOGLOBIN 1.5 % (0.5-1.5); BG DEOXYHEMOGLOBIN 7.1 % (0.0-5.0); BG FRACTION INSPIRED OXYGEN 32; BG HCO3 ACT 43.5 mmol/L (22.0-26.0); BG METHEMOGLOBIN 0.3 % (0.0-1.5); BG OXYGEN SATURATION 92.8 % (92.0-98.5); BG OXYHEMOGLOBIN 91.1 % (94.0-97.0); BG PCO2 67.1 mmHg (35.0-45.0); BG PO2 68.3 mmHg (75.0-100.0); BG SAMPLE SITE LEFT RADIAL; BG TOTAL HEMOGLOBIN 9.7 g/dL (12.0-18.0); BG VENT MODE NASAL CANNULA
[2021-04-20] MEDS ORDERED: IPRATROPIUM/ALBUTEROL 0.5-3(2.5)MG/3ML NEB HHN PRN (12:15)
[2021-04-20] MEDS ORDERED: ACETAMINOPHEN 325MG TABLET PO PRN ×2 (12:15)
[2021-04-20] MEDS ORDERED: ONDANSETRON HCL 4MG/2ML INJ IV PRN (12:15)
[2021-04-20] MEDS ORDERED: DOCUSATE SODIUM 100MG CAPSULE PO PRN (12:15)
[2021-04-20] MEDS ORDERED: CLONIDINE 0.1MG TABLET PO PRN (12:15)
[2021-04-20] MEDS ORDERED: NALOXONE HCL 0.4MG/ML VIAL IV PRN (12:30)
[2021-04-20] MEDS: DILTIAZEM HCL 30MG TABLET PO SCH ×2 (12:55→17:51)
[2021-04-20 16:00] VITALS: BP 113/70
[2021-04-20] MEDS: FERROUS SULFATE 325MG TABLET PO SCH (17:51)
[2021-04-20 20:00] VITALS: BP 117/61
[2021-04-20] MEDS: IPRATROPIUM/ALBUTEROL 0.5-3(2.5)MG/3ML NEB HHN SCH (21:04)
[2021-04-20] MEDS: CARVEDILOL 6.25 MG TABLET PO SCH (21:27)
[2021-04-20] MEDS: GUAIFENESIN 600MG ER TABLET PO SCH (21:27)
[2021-04-20] MEDS: FAMOTIDINE 20MG TABLET PO SCH (21:27)
[2021-04-21] VITALS (7 sets, daily range): BP systolic 98–120; BP diastolic 57–84
[2021-04-21] MEDS: DILTIAZEM HCL 30MG TABLET PO SCH ×4 (00:47→18:54)
[2021-04-21] MEDS: IPRATROPIUM/ALBUTEROL 0.5-3(2.5)MG/3ML NEB HHN SCH ×3 (01:26→20:51)
[2021-04-21] MEDS: LOSARTAN POTASSIUM 25 MG TABLET PO SCH (11:11)
[2021-04-21] MEDS: FOLIC ACID 1MG TABLET PO SCH (11:11)
[2021-04-21] MEDS: FERROUS SULFATE 325MG TABLET PO SCH ×2 (11:12→18:55)
[2021-04-21] MEDS: CARVEDILOL 6.25 MG TABLET PO SCH ×2 (11:12→20:49)
[2021-04-21] MEDS: FAMOTIDINE 20MG TABLET PO SCH (11:12)
[2021-04-21] MEDS: APIXABAN 5 MG TABLET PO SCH ×2 (11:12→18:54)
[2021-04-21] MEDS: FUROSEMIDE 40MG TABLET PO SCH (11:12)
[2021-04-21] MEDS: POLYETHYLENE GLYCOL 3350 (17GM) 1 DOSE PACK PO SCH (11:13)
[2021-04-21] MEDS: GUAIFENESIN 600MG ER TABLET PO SCH ×2 (11:18→21:16)
[2021-04-22] VITALS (7 sets, daily range): BP systolic 85–122; BP diastolic 39–65
[2021-04-22] MEDS: IPRATROPIUM/ALBUTEROL 0.5-3(2.5)MG/3ML NEB HHN SCH ×2 (02:37→21:01)
[2021-04-22] MEDS: DILTIAZEM HCL 30MG TABLET PO SCH ×5 (05:39→23:36)
[2021-04-22] MEDS: CARVEDILOL 6.25 MG TABLET PO SCH ×2 (08:10→21:00)
[2021-04-22] MEDS: LOSARTAN POTASSIUM 25 MG TABLET PO SCH (08:10)
[2021-04-22] MEDS: FERROUS SULFATE 325MG TABLET PO SCH ×2 (08:12→18:02)
[2021-04-22] MEDS: FOLIC ACID 1MG TABLET PO SCH (08:12)
[2021-04-22] MEDS: POLYETHYLENE GLYCOL 3350 (17GM) 1 DOSE PACK PO SCH (08:12)
[2021-04-22] MEDS: FUROSEMIDE 40MG TABLET PO SCH (08:12)
[2021-04-22] MEDS: APIXABAN 5 MG TABLET PO SCH ×2 (08:12→18:00)
[2021-04-22] MEDS: GUAIFENESIN 600MG ER TABLET PO SCH ×2 (08:16→20:25)
[2021-04-22] MEDS: FAMOTIDINE 20MG TABLET PO SCH (20:25)
[2021-04-22] MEDS ORDERED: AZTREONAM 1 G in DEXTROSE 5% WATER 50 ML IV SCH (23:15)
[2021-04-22] MEDS: LORAZEPAM 0.5MG TABLET PO PRN (23:36)
[2021-04-22] MEDS: CEFEPIME 1,000 MG in DEXTROSE 5% WATER 50 ML IV SCH (23:41)
[2021-04-23] VITALS: BP 103/60
[2021-04-23] MEDS: IPRATROPIUM/ALBUTEROL 0.5-3(2.5)MG/3ML NEB HHN SCH ×4 (02:51→20:34)
[2021-04-23 04:00] VITALS: BP 96/50
[2021-04-23] MEDS: DILTIAZEM HCL 30MG TABLET PO SCH ×3 (05:11→17:56)
[2021-04-23] MEDS: CEFEPIME 1,000 MG in DEXTROSE 5% WATER 50 ML IV SCH ×2 (06:40→14:50)
[2021-04-23 07:05] LABS: CHLORIDE 99 mEq/L (98-107)
[2021-04-23 07:14] LABS: BASOPHILS % 0.3 % (0.0-2.0); EOSINOPHILS % 1.2 % (0.0-5.0); HEMOGLOBIN. 8.1 g/dL (12.0-16.0); LYMPHOCYTES % 9.3 % (20.0-50.0); MEAN CORPUSCULAR HEMOGLOBIN 23.3 pg (28.0-32.0); MEAN CORPUSCULAR VOLUME 79.9 fL (81.0-99.0); MEAN PLATELET VOLUME 9.3 fl (7.4-10.4); MONOCYTES % 10.1 % (2.0-8.0); NEUTROPHILS % 79.1 % (40.0-76.0); PLATELET 125 x1000/uL (130-400)
[2021-04-23 08:00] VITALS: BP 109/55
[2021-04-23] MEDS: LOSARTAN POTASSIUM 25 MG TABLET PO SCH (09:00)
[2021-04-23] MEDS: CARVEDILOL 6.25 MG TABLET PO SCH ×2 (09:00→21:41)
[2021-04-23] MEDS: GUAIFENESIN 600MG ER TABLET PO SCH ×2 (09:01→21:40)
[2021-04-23] MEDS: FUROSEMIDE 40MG TABLET PO SCH (09:01)
[2021-04-23] MEDS: FOLIC ACID 1MG TABLET PO SCH (09:01)
[2021-04-23] MEDS: FERROUS SULFATE 325MG TABLET PO SCH ×2 (09:02→17:56)
[2021-04-23] MEDS: APIXABAN 5 MG TABLET PO SCH ×2 (09:02→17:56)
[2021-04-23] MEDS: POLYETHYLENE GLYCOL 3350 (17GM) 1 DOSE PACK PO SCH (09:02)
[2021-04-23 12:52] VITALS: BP 115/54
[2021-04-23 16:20] VITALS: BP 118/70
[2021-04-23] MEDS: NITROFURANTOIN 100MG M/M CAPSULE PO SCH (17:55)
[2021-04-23 20:00] VITALS: BP 137/87
[2021-04-23] MEDS: FAMOTIDINE 20MG TABLET PO SCH (21:40)
[2021-04-23] MEDS: HYDROCODONE/ACETAMINOPHEN 5/325MG TABLET PO PRN (21:43)
[2021-04-23] MEDS: LORAZEPAM 0.5MG TABLET PO PRN (21:43)
[2021-04-24] VITALS (7 sets, daily range): BP systolic 104–116; BP diastolic 53–82
[2021-04-24] MEDS: NITROFURANTOIN 100MG M/M CAPSULE PO SCH ×3 (00:39→21:17)
[2021-04-24] MEDS: DILTIAZEM HCL 30MG TABLET PO SCH ×4 (00:39→17:35)
[2021-04-24] MEDS: IPRATROPIUM/ALBUTEROL 0.5-3(2.5)MG/3ML NEB HHN SCH ×4 (01:56→20:48)
[2021-04-24 07:25] LABS: BASOPHILS % 0.3 % (0.0-2.0); EOSINOPHILS % 2.2 % (0.0-5.0); HEMOGLOBIN. 7.9 g/dL (12.0-16.0); LYMPHOCYTES % 9.3 % (20.0-50.0); MEAN CORPUSCULAR HEMOGLOBIN 23.4 pg (28.0-32.0); MEAN CORPUSCULAR VOLUME 79.6 fL (81.0-99.0); MEAN PLATELET VOLUME 9.2 fl (7.4-10.4); MONOCYTES % 9.2 % (2.0-8.0); PLATELET 119 x1000/uL (130-400); RED BLOOD CELL COUNT 3.39 mill/uL (4.2-5.4); RED CELL DISTRIBUTION WIDTH 33.4 % (11.6-14.6)
[2021-04-24 07:45] LABS: CHLORIDE 99 mEq/L (98-107)
[2021-04-24] MEDS: POLYETHYLENE GLYCOL 3350 (17GM) 1 DOSE PACK PO SCH (09:04)
[2021-04-24] MEDS: FERROUS SULFATE 325MG TABLET PO SCH ×2 (09:04→17:35)
[2021-04-24] MEDS: FOLIC ACID 1MG TABLET PO SCH (09:05)
[2021-04-24] MEDS: APIXABAN 5 MG TABLET PO SCH ×2 (09:05→17:34)
[2021-04-24] MEDS: FUROSEMIDE 40MG TABLET PO SCH (09:05)
[2021-04-24] MEDS: LOSARTAN POTASSIUM 25 MG TABLET PO SCH (09:06)
[2021-04-24] MEDS: CARVEDILOL 6.25 MG TABLET PO SCH ×2 (09:07→20:45)
[2021-04-24] MEDS: GUAIFENESIN 600MG ER TABLET PO SCH ×2 (09:07→21:18)
[2021-04-24] MEDS ORDERED: POTASSIUM CHLORIDE 20MEQ/PACKET PO NR (10:00)
[2021-04-24 13:40] LABS: PLATELET ESTIMATE SLIGHTLY DECREASED
[2021-04-24] MEDS: FAMOTIDINE 20MG TABLET PO SCH (21:17)
[2021-04-25] MEDS: HYDROCODONE/ACETAMINOPHEN 5/325MG TABLET PO PRN (00:20)
[2021-04-25] MEDS: IPRATROPIUM/ALBUTEROL 0.5-3(2.5)MG/3ML NEB HHN SCH ×5 (00:50→20:23)
[2021-04-25 04:00] VITALS: BP 109/62
[2021-04-25] MEDS: DILTIAZEM HCL 30MG TABLET PO SCH ×4 (05:06→17:37)
[2021-04-25 07:20] LABS: BASOPHILS % 1.2 % (0.0-2.0); EOSINOPHILS % 1.4 % (0.0-5.0); HEMATOCRIT. 29.2 % (36.0-48.0); HEMOGLOBIN. 8.6 g/dL (12.0-16.0); LYMPHOCYTES % 9.7 % (20.0-50.0); MEAN CORPUSCULAR HEMOGLOBIN 23.6 pg (28.0-32.0); MEAN PLATELET VOLUME 9.4 fl (7.4-10.4); MONOCYTES % 9.8 % (2.0-8.0); NEUTROPHILS % 77.9 % (40.0-76.0); PLATELET 121 x1000/uL (130-400); RED BLOOD CELL COUNT 3.65 mill/uL (4.2-5.4); RED CELL DISTRIBUTION WIDTH 33.7 % (11.6-14.6)
[2021-04-25 08:03] VITALS: BP 99/75
[2021-04-25] MEDS: CARVEDILOL 6.25 MG TABLET PO SCH ×2 (09:00→21:00)
[2021-04-25] MEDS: LOSARTAN POTASSIUM 25 MG TABLET PO SCH (09:00)
[2021-04-25] MEDS: FERROUS SULFATE 325MG TABLET PO SCH ×2 (09:51→17:47)
[2021-04-25] MEDS: FUROSEMIDE 40MG TABLET PO SCH (09:51)
[2021-04-25] MEDS: NITROFURANTOIN 100MG M/M CAPSULE PO SCH ×2 (09:51→21:32)
[2021-04-25] MEDS: FOLIC ACID 1MG TABLET PO SCH (09:51)
[2021-04-25] MEDS: APIXABAN 5 MG TABLET PO SCH ×2 (09:51→17:47)
[2021-04-25] MEDS: GUAIFENESIN 600MG ER TABLET PO SCH ×2 (09:51→21:32)
[2021-04-25] MEDS: POLYETHYLENE GLYCOL 3350 (17GM) 1 DOSE PACK PO SCH (09:52)
[2021-04-25 10:38] LABS: CHLORIDE 100 mEq/L (98-107)
[2021-04-25 12:03] VITALS: BP 125/71
[2021-04-25 16:00] VITALS: BP 109/68
[2021-04-25 20:00] VITALS: BP 112/78
[2021-04-25] MEDS: FAMOTIDINE 20MG TABLET PO SCH (21:32)
[2021-04-26] VITALS (7 sets, daily range): BP systolic 89–120; BP diastolic 60–83
[2021-04-26] MEDS: IPRATROPIUM/ALBUTEROL 0.5-3(2.5)MG/3ML NEB HHN SCH ×3 (01:35→21:08)
[2021-04-26] MEDS: DILTIAZEM HCL 30MG TABLET PO SCH ×5 (06:00→23:40)
[2021-04-26 06:20] LABS: EOSINOPHILS % 1.9 % (0.0-5.0); HEMATOCRIT. 30.1 % (36.0-48.0); HEMOGLOBIN. 8.9 g/dL (12.0-16.0); LYMPHOCYTES % 10.9 % (20.0-50.0); MEAN CORPUSCULAR HEMOGLOBIN 23.6 pg (28.0-32.0); MEAN CORPUSCULAR VOLUME 79.9 fL (81.0-99.0); MEAN PLATELET VOLUME 9.2 fl (7.4-10.4); MONOCYTES % 10.2 % (2.0-8.0); PLATELET 126 x1000/uL (130-400); RED BLOOD CELL COUNT 3.77 mill/uL (4.2-5.4); RED CELL DISTRIBUTION WIDTH 33.4 % (11.6-14.6)
[2021-04-26 06:35] LABS: CHLORIDE 100 mEq/L (98-107)
[2021-04-26] MEDS: FERROUS SULFATE 325MG TABLET PO SCH ×2 (08:40→18:03)
[2021-04-26] MEDS: FUROSEMIDE 40MG TABLET PO SCH (08:40)
[2021-04-26] MEDS: FOLIC ACID 1MG TABLET PO SCH (08:40)
[2021-04-26] MEDS: APIXABAN 5 MG TABLET PO SCH ×2 (08:40→18:03)
[2021-04-26] MEDS: NITROFURANTOIN 100MG M/M CAPSULE PO SCH ×2 (08:40→21:50)
[2021-04-26] MEDS: POLYETHYLENE GLYCOL 3350 (17GM) 1 DOSE PACK PO SCH (08:41)
[2021-04-26] MEDS: CARVEDILOL 6.25 MG TABLET PO SCH ×2 (08:41→21:50)
[2021-04-26] MEDS: LOSARTAN POTASSIUM 25 MG TABLET PO SCH (10:00)
[2021-04-26] MEDS: GUAIFENESIN 600MG ER TABLET PO SCH ×2 (10:01→21:49)
[2021-04-26] MEDS: FAMOTIDINE 20MG TABLET PO SCH (21:49)
[2021-04-27] MEDS: IPRATROPIUM/ALBUTEROL 0.5-3(2.5)MG/3ML NEB HHN SCH ×3 (01:51→14:01)
[2021-04-27 04:00] VITALS: BP 102/56
[2021-04-27] MEDS: DILTIAZEM HCL 30MG TABLET PO SCH ×3 (06:00→17:36)
[2021-04-27 08:15] VITALS: BP 122/54
[2021-04-27] MEDS: POLYETHYLENE GLYCOL 3350 (17GM) 1 DOSE PACK PO SCH (09:00)
[2021-04-27] MEDS: GUAIFENESIN 600MG ER TABLET PO SCH (09:00)
[2021-04-27] MEDS: NITROFURANTOIN 100MG M/M CAPSULE PO SCH (09:32)
[2021-04-27] MEDS: APIXABAN 5 MG TABLET PO SCH ×2 (09:32→17:36)
[2021-04-27] MEDS: FERROUS SULFATE 325MG TABLET PO SCH ×2 (09:32→17:36)
[2021-04-27] MEDS: FUROSEMIDE 40MG TABLET PO SCH (09:32)
[2021-04-27] MEDS: CARVEDILOL 6.25 MG TABLET PO SCH (09:32)
[2021-04-27] MEDS: LOSARTAN POTASSIUM 25 MG TABLET PO SCH (09:33)
[2021-04-27] MEDS: FOLIC ACID 1MG TABLET PO SCH (09:33)
[2021-04-27 12:44] VITALS: BP 101/63
[2021-04-27 16:25] VITALS: BP 115/62
== END 2021-04-27 19:58 | disposition home health service (06) | DRG 291 ==
LOC: ER 21:10 → 6WST 23:44 → EDBEDREQ 23:56 → EDBEDREQTM 23:56 → ENRESERV 04-20 04:31
PROVIDERS: ADMIT Internal Medicine; ATTEND Internal Medicine
PROC: 5A09357 Assistance with Respiratory Ventilation, Less than 24 Consecutive Hours, Continuous Positive Airway Pressure (ICD-10-PCS; principal; 2021-04-21)
PROC: 5A09357 Assistance with Respiratory Ventilation, Less than 24 Consecutive Hours, Continuous Positive Airway Pressure (ICD-10-PCS; 2021-04-22)
PROC: 5A09357 Assistance with Respiratory Ventilation, Less than 24 Consecutive Hours, Continuous Positive Airway Pressure (ICD-10-PCS; 2021-04-23)
PROC: 5A09357 Assistance with Respiratory Ventilation, Less than 24 Consecutive Hours, Continuous Positive Airway Pressure (ICD-10-PCS; 2021-04-25)
PROC: 5A09357 Assistance with Respiratory Ventilation, Less than 24 Consecutive Hours, Continuous Positive Airway Pressure (ICD-10-PCS; 2021-04-27)
DX: I11.0 Hypertensive heart disease with heart failure (principal); J96.22 Acute and chronic respiratory failure with hypercapnia; L89.893 Pressure ulcer of other site, stage 3; I50.43 Acute on chronic combined systolic (congestive) and diastolic (congestive) heart failure; E66.2 Morbid (severe) obesity with alveolar hypoventilation; G93.40 Encephalopathy, unspecified; I48.20 Chronic atrial fibrillation, unspecified; I48.92 Unspecified atrial flutter; Z68.44 Body mass index [BMI] 60.0-69.9, adult; N39.0 Urinary tract infection, site not specified; I42.9 Cardiomyopathy, unspecified; D50.9 Iron deficiency anemia, unspecified; E11.9 Type 2 diabetes mellitus without complications; E78.5 Hyperlipidemia, unspecified; I87.8 Other specified disorders of veins; E53.8 Deficiency of other specified B group vitamins; J44.9 Chronic obstructive pulmonary disease, unspecified; Z53.20 Procedure and treatment not carried out because of patient's decision for unspecified reasons; I27.21 Secondary pulmonary arterial hypertension; I34.0 Nonrheumatic mitral (valve) insufficiency; I36.1 Nonrheumatic tricuspid (valve) insufficiency; Z88.0 Allergy status to penicillin; Z79.899 Other long term (current) drug therapy; Z82.49 Family history of ischemic heart disease and other diseases of the circulatory system; Z99.81 Dependence on supplemental oxygen; Z79.01 Long term (current) use of anticoagulants; Z79.84 Long term (current) use of oral hypoglycemic drugs
CPT/HCPCS: 36415; 36600; 71045; 80048; 80053; 81003; 82040; 82270; 82375; 82805; 82962; 84134; 84484; 85025; 87077; 87186; 93005; 94640; 94660; 97163; 99285; A6261; J0692; J7060